=== PATIENT | male | born 1955 | race Caucasian/White ===

== ENCOUNTER → 2018-02-26 | Outpatient (REF) | payer OTHER | LOC: M SFHCLERA 15:55 | DX: R30.0 Dysuria (principal) ==

== ENCOUNTER 2018-03-22 14:53 | Inpatient (IN) | payer OTHER ==
[2018-03-22] MEDS: NITROGLYCERIN 0.4 MG SUBL TABLET SL (15:18)
[2018-03-22 15:21] LABS: BASO % 0.4 % (0.0-1.0); EOS # 0.1 10^3/uL (0.0-0.50); HEMOGLOBIN 13.7 g/dl (13.5-17.5); IMMATURE GRANULOCYTE % 0.4 % (0-3.0); LYMPH # 0.7 10^3/uL (1.5-4.5); MEAN CORPUSCULAR HEMOGLOBIN 31.3 pg (27.0-33.0); MEAN CORPUSCULAR HGB CONC 35.1 g/dl (32.0-36.5); MONO # 0.7 10^3/uL (0.0-0.8); NEUTROPHILS # 6.3 10^3/uL (1.8-7.7); NEUTROPHILS % 80.2 % (36.0-66.0); PLATELET COUNT, AUTOMATED 183 10^3/uL (150-450); RED BLOOD COUNT 4.38 10^6/uL (4.30-6.10); RED CELL DISTRIBUTION WIDTH 12.2 % (11.5-14.5); WHITE BLOOD COUNT 7.9 10^3/uL (4.0-10.0)
[2018-03-22 15:33] LABS: INR 0.94; PROTHROMBIN TIME 12.6 SECONDS (12.4-14.5)
[2018-03-22] MEDS: NS 500 ML IV (15:45)
[2018-03-22 15:48] LABS: ANION GAP 6 MEQ/L (8-16); BLOOD UREA NITROGEN 13 MG/DL (7-18); CALCIUM LEVEL 6.3 MG/DL (8.8-10.2); CARBON DIOXIDE LEVEL 21 MEQ/L (21-32); CHLORIDE LEVEL 117 MEQ/L (98-107); CREATININE FOR GFR 0.76 MG/DL (0.70-1.30); GLOMERULAR FILTRATION RATE > 60.0 (>49); GLUCOSE, FASTING 120 MG/DL (70-100); POTASSIUM SERUM 3.2 MEQ/L (3.5-5.1); SODIUM LEVEL 144 MEQ/L (136-145); TROPONIN I 0.06 NG/ML (< 0.10)
[2018-03-22 15:49] LABS: CK-MB VALUE MASS 1.1 NG/ML (<3.6); CPK CREATINE PHOSPHOKINASE 77 U/L (39-308); MB/CK RELATIVE INDEX 1.42 (< OR =4)
[2018-03-22] MEDS ORDERED: ISOVUE-370 76% 100ML VIAL (Q9967) As Ordered (16:09)
[2018-03-22] MEDS: POTASSIUM CHLORIDE 10 MEQ SR TABLET PO ×2 (16:10→21:03)
[2018-03-22] MEDS: NS 1,000 ML IV (17:09)
[2018-03-22] MEDS: cefTRIAXone SOD 1 GM in D5W MINI-BAG PLUS 50 ML IV (17:14)
[2018-03-22 17:38] LABS: LACTIC ACID SEPSIS PROTOCOL 0.8 MMOL/L (0.4-2.0)
[2018-03-22] MEDS ORDERED: NS 1,000 ML IV (17:58)
[2018-03-22] MEDS ORDERED: ONDANSETRON 4MG/2ML VIAL (J2405) IV (18:00)
[2018-03-22] MEDS: AZITHROMYCIN INJ 500 MG, VIAL MATE ADAPTER 1 EACH in D5W 250 ML IV (18:03)
[2018-03-22] MEDS: LevoFLOXacin IV 750 MG in APPROPRIATE DILUENT 1 EA IV (19:44)
[2018-03-22] MEDS: KETOROLAC 30 MG/ML VIAL (J1885) IV (21:02)
[2018-03-23] MEDS: NS 1,000 ML IV ×4 (00:05→19:59)
[2018-03-23] MEDS: traMADol 50 MG TAB PO ×2 (06:10→20:00)
[2018-03-23 07:01] LABS: BASO % 0.5 % (0.0-1.0); EOS # 0.1 10^3/uL (0.0-0.50); EOS % 2.5 % (0.0-3.0); HEMATOCRIT 36.6 % (42.0-52.0); HEMOGLOBIN 12.7 g/dl (13.5-17.5); IMMATURE GRANULOCYTE % 0.2 % (0-3.0); LYMPH % 17.3 % (24.0-44.0); MEAN CORPUSCULAR HEMOGLOBIN 31.2 pg (27.0-33.0); MEAN CORPUSCULAR HGB CONC 34.7 g/dl (32.0-36.5); MEAN CORPUSCULAR VOLUME 89.9 fl (80.0-96.0); MONO # 0.7 10^3/uL (0.0-0.8); MONO % 11.4 % (0.0-5.0); NEUTROPHILS # 3.9 10^3/uL (1.8-7.7); NEUTROPHILS % 68.1 % (36.0-66.0); PLATELET COUNT, AUTOMATED 182 10^3/uL (150-450); RED BLOOD COUNT 4.07 10^6/uL (4.30-6.10); RED CELL DISTRIBUTION WIDTH 12.2 % (11.5-14.5); WHITE BLOOD COUNT 5.7 10^3/uL (4.0-10.0)
[2018-03-23] MEDS: ENOXAPARIN 40 MG/0.4 ML SYRINGE (J1650) SC (07:49)
[2018-03-23] MEDS: LevoFLOXacin IV 750 MG in APPROPRIATE DILUENT 1 EA IV (17:19)
[2018-03-24] MEDS: NS 1,000 ML IV ×2 (02:06→08:11)
[2018-03-24] MEDS: ENOXAPARIN 40 MG/0.4 ML SYRINGE (J1650) SC (08:11)
== END 2018-03-24 12:53 | disposition home or self-care (01) | DRG 195 ==
LOC: M ED 14:53 → M ED INP 17:58 → M MSPAV 23:44
DX: J18.9 Pneumonia, unspecified organism (principal); Z79.899 Other long term (current) drug therapy; R07.81 Pleurodynia; M54.9 Dorsalgia, unspecified

== ENCOUNTER → 2018-07-08 | Outpatient (REF) | payer OTHER | LOC: M SFHCLERA 17:44 | DX: J02.9 Acute pharyngitis, unspecified (principal) ==

== ENCOUNTER → 2018-07-08 | Outpatient (CLI) | payer OTHER | LOC: M LRY 15:59 | DX: R05 Cough (principal) | CPT/HCPCS: 71046; 87880 ==

== ENCOUNTER 2019-03-13 18:18 | Emergency (ER) | payer OTHER ==
[~2019-03-13] VITALS: Ht 180.3 cm; Wt 87.3 kg
[~2019-03-13 18:18] MED LIST changes: -ASPI81CH33 PO
[2019-03-13 19:51] LABS: BASO % 0.9 % (0.0-1.0); EOS # 0.2 10^3/uL (0.0-0.50); EOS % 3.6 % (0.0-3.0); HEMATOCRIT 40.1 % (42.0-52.0); HEMOGLOBIN 13.9 g/dl (13.5-17.5); LYMPH # 0.9 10^3/uL (1.5-4.5); LYMPH % 19.6 % (24.0-44.0); MEAN CORPUSCULAR HGB CONC 34.7 g/dl (32.0-36.5); MEAN CORPUSCULAR VOLUME 92.4 fl (80.0-96.0); MONO # 0.4 10^3/uL (0.0-0.8); MONO % 8.9 % (0.0-5.0); NEUTROPHILS # 3.1 10^3/uL (1.8-7.7); NEUTROPHILS % 66.8 % (36.0-66.0); PLATELET COUNT, AUTOMATED 179 10^3/uL (150-450); RED BLOOD COUNT 4.34 10^6/uL (4.30-6.10); WHITE BLOOD COUNT 4.7 10^3/uL (4.0-10.0)
[2019-03-13 20:15] LABS: INR 0.97
[2019-03-13 20:16] LABS: PARTIAL THROMBOPLASTIN TIME 31.9 SECONDS (25.4-37.6)
[2019-03-13 20:25] LABS: ALBUMIN 3.6 GM/DL (3.2-5.2); ALT/SGPT 39 U/L (12-78); BILIRUBIN,DIRECT 0.2 MG/DL (0.0-0.2); BILIRUBIN,TOTAL 0.8 MG/DL (0.2-1.0); BLOOD UREA NITROGEN 23 MG/DL (7-18); CALCIUM LEVEL 9.1 MG/DL (8.8-10.2); CARBON DIOXIDE LEVEL 26 MEQ/L (21-32); CHLORIDE LEVEL 106 MEQ/L (98-107); CK-MB VALUE MASS 6.7 NG/ML (<3.6); CPK CREATINE PHOSPHOKINASE 565 U/L (39-308); CREATININE FOR GFR 1.14 MG/DL (0.70-1.30); GLOMERULAR FILTRATION RATE > 60.0 (>49); GLUCOSE, FASTING 137 MG/DL (70-100); MB/CK RELATIVE INDEX 1.19 (< OR =4); NT-PRO BNP 79 PG/ML (<125); SODIUM LEVEL 139 MEQ/L (136-145); TOTAL PROTEIN 6.5 GM/DL (6.4-8.2)
[2019-03-13] MEDS ORDERED: ISOVUE-370 76% 100ML VIAL (Q9967) As Ordered ONE (20:32)
--- NOTE | 2019-03-13 21:28 | REPVR ---
EXAM: CT Angiography Chest With Contrast EXAM DATE/TIME: 03/13/2019 8:47 PM CLINICAL HISTORY: 64 years old, male; Chest pain; Additional info: R/O pe TECHNIQUE: Imaging protocol: Axial computed tomographic angiography images of the chest with intravenous contrast using CT angiography protocol. Coronal and sagittal reformatted images were created and reviewed. 3D rendering: MIP reconstructed images were created and reviewed. Radiation optimization: All CT scans at this facility use at least one of these dose optimization techniques: automated exposure control; mA and/or kV adjustment per patient size (includes targeted exams where dose is matched to clinical indication); or iterative reconstruction. Contrast material: ISOVUE 370; Contrast volume: 75 ml; Contrast route: IV; COMPARISON: CT ANGIO CHEST 03/22/2018 4:18 PM FINDINGS: Pulmonary arteries: No focal pulmonary artery filling defect to suggest acute pulmonary embolus. Aorta: No thoracic aortic aneurysm or dissection. Lungs: Pulmonary vascular/interstitial pattern does not suggest active pulmonary edema. No suspicious lung mass or air space process. No central endobronchial lesion. Pleural space: No pleural effusion or pneumothorax. Heart: No evidence of pericardial effusion. Upper abdomen: Limited visualization of upper abdomen shows no concerning finding. Lymph nodes: No enlarged mediastinal lymph nodes. Bones/joints: Bony structures are unremarkable except for thoracic degenerative disc disease. Soft tissues: Unremarkable. IMPRESSION: 1. No evidence of acute pulmonary embolus. 2. No other acute or concerning focal intrathoracic abnormality. Electronically signed by: Saurabh Lerma On 03/13/2019 21:28:29 PM
[2019-03-13] MEDS ORDERED: KETOROLAC 30 MG/ML VIAL (J1885) IV ONE (22:30)
[2019-03-13 22:59] LABS: CK-MB VALUE MASS 6.1 NG/ML (<3.6); MB/CK RELATIVE INDEX 1.21 (< OR =4); TROPONIN I 0.19 NG/ML (< 0.10)
[2019-03-13] MEDS ORDERED: ASPI81CH33 PO (23:26)
[2019-03-13] MEDS ORDERED: ASPIRIN 81 MG ENTERIC TAB PO ONE (23:30)
[2019-03-13 23:58] VITALS: BP 130/80
--- NOTE | 2019-03-14 16:11 | ECGEPIP ---
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
--- NOTE | 2019-03-14 16:15 | ECGEPIP ---
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
== END 2019-03-13 23:56 | disposition home or self-care (01) ==
LOC: M ED 18:18
DX: R07.2 Precordial pain (principal); R74.8 Abnormal levels of other serum enzymes; R00.1 Bradycardia, unspecified; M79.605 Pain in left leg; E03.9 Hypothyroidism, unspecified; Z87.81 Personal history of (healed) traumatic fracture; Z79.899 Other long term (current) drug therapy; R07.89 Other chest pain; M25.552 Pain in left hip
CPT/HCPCS: 71046; 71275; 73552; 80048; 80076; 82550; 82553; 83880; 84443; 84484; 85025; 85610; 85730; 93005; 93041; 94760; 99285; G0463; J1885; Q9967

== ENCOUNTER → 2019-03-13 | Outpatient (CLI) | payer OTHER ==
[~2019-03-13] MED LIST: ADDE20CA PO; ASPI81CH33 PO; CYCL10TA PO; LEVA1TAB2 PO; LIDO5DIS41; LIDO5DIS41 TD; MELO7.5T7; MULTIVITAMIN; SERO1TAB PO; TIZA4CAP; TRAM50TA2 PO; VITA-121 PO
--- NOTE | 2019-03-13 17:08 | REP ---
Chest x-ray: Two views. History: Left upper chest tightness. Comparison study: July 08, 2018. Findings: The lungs are slightly hyperinflated but remain clear. Pleural angles are sharp. Heart size is normal. Pulmonary vasculature is not increased. The thoracic aorta slightly tortuous unchanged. No significant bony abnormality is appreciated. Impression: No active disease. Electronically Signed by Jose G Phelps MD 03/13/2019 04:59 P
--- NOTE | 2019-03-13 17:21 | REP ---
Left femur series: Five views. History: Pain in the lateral aspect of the left thigh 2 days after fall. Findings: Five views of the left femur and thigh demonstrate mild superior acetabular spurring. There is a soft tissue ossicle medial to the lesser trochanter which is of old and well corticated. No fracture or subluxation is seen. Impression: No fracture or subluxation seen. Mild hip joint osteoarthritis. Periarticular dystrophic ossification seen medial to the lesser trochanter. Electronically Signed by Jose G Phelps MD 03/13/2019 09:14 P
== END ==
LOC: M LRY 16:29
PROVIDERS: ATTEND Physician Assistant
DX: R07.89 Other chest pain (principal); M79.605 Pain in left leg; M25.552 Pain in left hip

== ENCOUNTER 2020-05-08 20:46 | Emergency (ER) | payer OTHER ==
[~2020-05-08 20:46] MED LIST changes: +ASPI81CH33 PO; +CYCL-707 PO; -CYCL10TA PO
--- NOTE | 2020-06-19 10:48 | ECGEPIP ---
SINUS BRADYCARDIA WITH OCCASIONAL VENTRICULAR PREMATURE COMPLEXES BORDERLINE ECG IVCD SEE SCANNED DOWNTIME REPORT MTDD
[2020-06-22 05:06] LABS: BASO # 0.1 10^3/uL (0.0-0.2); BASO % 1.2 % (0.0-1.0); EOS # 0.2 10^3/uL (0.0-0.5); EOS % 5.6 % (0.0-3.0); HEMATOCRIT 41.7 % (42.0-52.0); HEMOGLOBIN 14.2 g/dl (13.5-17.5); LYMPH # 1.3 10^3/uL (1.5-5.0); LYMPH % 29.3 % (24.0-44.0); MEAN CORPUSCULAR HEMOGLOBIN 31.4 pg (27.0-33.0); MEAN CORPUSCULAR HGB CONC 34.1 g/dl (32.0-36.5); MEAN CORPUSCULAR VOLUME 92.3 fl (80.0-96.0); MONO # 0.4 10^3/uL (0.0-0.8); MONO % 10.1 % (0.0-5.0); NEUTROPHILS # 2.3 10^3/uL (1.5-8.5); NEUTROPHILS % 53.6 % (36.0-66.0); PLATELET COUNT, AUTOMATED 188 10^3/uL (150-450); RED BLOOD COUNT 4.52 10^6/uL (4.30-6.10); WHITE BLOOD COUNT 4.3 10^3/uL (4.0-10.0)
[2020-07-28 17:32] LABS: BLOOD UREA NITROGEN 17 MG/DL (7-18); CALCIUM LEVEL 9.3 MG/DL (8.8-10.2); CARBON DIOXIDE LEVEL 30 MEQ/L (21-32); CHLORIDE LEVEL 106 MEQ/L (98-107); CK-MB VALUE MASS 4.7 NG/ML (<3.6); CPK CREATINE PHOSPHOKINASE 146 U/L (39-308); CREATININE FOR GFR 1.07 MG/DL (0.70-1.30); FREE T4 0.93 NG/DL (0.76-1.46); GLOMERULAR FILTRATION RATE > 60.0 (>49); GLUCOSE, FASTING 89 MG/DL (70-100); MAGNESIUM LEVEL 2.1 MG/DL (1.8-2.4); MB/CK RELATIVE INDEX 3.22 (< OR =4); POTASSIUM SERUM 3.9 MEQ/L (3.5-5.1); SODIUM LEVEL 138 MEQ/L (136-145); TROPONIN I 0.18 NG/ML (< 0.10)
== END 2020-05-09 02:40 | disposition home or self-care (01) ==
LOC: M ED 20:46
DX: R53.81 Other malaise (principal); R11.0 Nausea; R00.1 Bradycardia, unspecified; R51 Headache; J02.9 Acute pharyngitis, unspecified; E03.9 Hypothyroidism, unspecified

== ENCOUNTER 2021-01-16 14:00 | Emergency (ER) | payer MEDICARE, OTHER ==
[~2021-01-16] VITALS: Ht 180.3 cm; Wt 94.7 kg
--- NOTE | 2021-01-16 15:31 | REP ---
INDICATION: CHEST PAIN. COMPARISON: 03/13/2019. TECHNIQUE: SINGLE PORTABLE AP VIEW OF THE CHEST WAS PERFORMED. FINDINGS: THERE IS NO ACUTE INFILTRATE OR PULMONARY EDEMA. LUNGS ARE CLEAR. HEART IS NOT SIGNIFICANTLY ENLARGED. MEDIASTINAL SILHOUETTE IS UNREMARKABLE. THE VISUALIZED OSSEOUS STRUCTURES ARE INTACT. IMPRESSION: NO ACUTE PULMONARY DISEASE. <Electronically signed by Carlos Albarran > 01/16/21 1520
[2021-01-16 15:39] LABS: BASO # 0.1 10^3/uL (0.0-0.2); BASO % 1.6 % (0.0-1.0); EOS # 0.2 10^3/uL (0.0-0.5); EOS % 5.4 % (0.0-3.0); HEMATOCRIT 41.8 % (42.0-52.0); HEMOGLOBIN 14.3 g/dl (13.5-17.5); LYMPH # 0.8 10^3/uL (1.5-5.0); LYMPH % 26.5 % (24.0-44.0); MEAN CORPUSCULAR HEMOGLOBIN 32.2 pg (27.0-33.0); MEAN CORPUSCULAR HGB CONC 34.2 g/dl (32.0-36.5); MEAN CORPUSCULAR VOLUME 94.1 fl (80.0-96.0); MONO # 0.4 10^3/uL (0.0-0.8); MONO % 13.1 % (2.0-8.0); NEUTROPHILS # 1.7 10^3/uL (1.5-8.5); NEUTROPHILS % 53.4 % (36.0-66.0); PLATELET COUNT, AUTOMATED 175 10^3/uL (150-450); RED BLOOD COUNT 4.44 10^6/uL (4.30-6.10); WHITE BLOOD COUNT 3.1 10^3/uL (4.0-10.0)
[2021-01-16 15:51] LABS: INR 0.95; PROTHROMBIN TIME 12.9 SECONDS (12.5-14.3)
[2021-01-16 16:12] LABS: ALBUMIN 3.5 GM/DL (3.2-5.2); ALT/SGPT 29 U/L (12-78); BILIRUBIN,DIRECT 0.2 MG/DL (0.0-0.2); BILIRUBIN,TOTAL 0.7 MG/DL (0.2-1.0); BLOOD UREA NITROGEN 21 MG/DL (7-18); CARBON DIOXIDE LEVEL 30 MEQ/L (21-32); CHLORIDE LEVEL 106 MEQ/L (98-107); CK-MB VALUE MASS 4.6 NG/ML (<3.6); CPK CREATINE PHOSPHOKINASE 152 U/L (39-308); GLOMERULAR FILTRATION RATE > 60.0 (>49); GLUCOSE, FASTING 99 MG/DL (70-100); LIPASE 103 U/L (73-393); MB/CK RELATIVE INDEX 3.03 (< OR =4); POTASSIUM SERUM 4.1 MEQ/L (3.5-5.1); SODIUM LEVEL 139 MEQ/L (136-145); TOTAL PROTEIN 6.7 GM/DL (6.4-8.2); TROPONIN I 0.17 NG/ML (< 0.10)
[2021-01-16 16:16] LABS: FREE T4 0.77 NG/DL (0.76-1.46); THYROID STIMULATING HORMONE 7.44 uIU/ML (0.358-3.740)
[2021-01-16 17:51] LABS: CK-MB VALUE MASS 4.5 NG/ML (<3.6); MB/CK RELATIVE INDEX 3.08 (< OR =4); TROPONIN I 0.17 NG/ML (< 0.10)
[2021-01-16] MEDS ORDERED: LEVOTHYROXINE 25MCG TABLET (0.025MG) PO ONE (18:15)
[2021-01-16] MEDS ORDERED: SYNT25TA PO ×2 (18:17→18:46)
[2021-01-16 18:30] VITALS: BP 126/66
--- NOTE | 2021-01-16 19:59 | ECGEPIP ---
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
--- NOTE | 2021-01-16 20:01 | ECGEPIP ---
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
== END 2021-01-16 18:43 | disposition home or self-care (01) ==
LOC: M ED 14:00
DX: R00.1 Bradycardia, unspecified (principal); I44.0 Atrioventricular block, first degree; E03.9 Hypothyroidism, unspecified

== ENCOUNTER 2021-02-27 10:04 | Emergency (ER) | payer MEDICARE, OTHER ==
[~2021-02-27] VITALS: Ht 180.3 cm; Wt 92.6 kg
[~2021-02-27 10:04] MED LIST changes: +SYNT25TA PO
--- NOTE | 2021-02-27 10:30 | REP ---
INDICATION: CHEST PAIN COMPARISON: 01/16/2021 TECHNIQUE: Portable AP view of the chest FINDINGS: The mediastinum and cardiac silhouette are stable and within normal limits for portable technique. The lung bellamy are clear without acute consolidation, effusion, or pneumothorax. Skeletal structures are intact. IMPRESSION: No acute cardiopulmonary process appreciated. <Electronically signed by Anthony Tipton > 02/27/21 1028
[2021-02-27] MEDS ORDERED: XARE15TA (11:05)
[2021-02-27 11:08] LABS: BASO # 0.1 10^3/uL (0.0-0.2); BASO % 1.6 % (0.0-1.0); EOS # 0.2 10^3/uL (0.0-0.5); EOS % 6.2 % (0.0-3.0); HEMATOCRIT 43.4 % (42.0-52.0); HEMOGLOBIN 14.8 g/dl (13.5-17.5); LYMPH # 1.3 10^3/uL (1.5-5.0); LYMPH % 32.5 % (24.0-44.0); MEAN CORPUSCULAR HEMOGLOBIN 31.7 pg (27.0-33.0); MEAN CORPUSCULAR HGB CONC 34.1 g/dl (32.0-36.5); MEAN CORPUSCULAR VOLUME 92.9 fl (80.0-96.0); MONO # 0.4 10^3/uL (0.0-0.8); MONO % 11.4 % (2.0-8.0); NEUTROPHILS # 1.8 10^3/uL (1.5-8.5); NEUTROPHILS % 47.8 % (36.0-66.0); PLATELET COUNT, AUTOMATED 171 10^3/uL (150-450); RED BLOOD COUNT 4.67 10^6/uL (4.30-6.10); WHITE BLOOD COUNT 3.9 10^3/uL (4.0-10.0)
--- NOTE | 2021-02-27 11:27 | REP ---
INDICATION: right testicular pain COMPARISON: None. TECHNIQUE: Albarran scale and color Doppler evaluation using linear and curved array transducer with color Doppler evaluation. FINDINGS: The testicles and epididymi are relatively normal in contour, size, and vascularity. Echogenicity to the right testicle is normal while the left testicle demonstrates a very subtle striated heterogeneous appearance which is nonspecific. There is no evidence for intratesticular mass lesion, infectious/inflammatory process, or torsion. No obvious hydroceles or varicoceles are identified. Right testicle measures 3.4 x 2.7 x 3.3 cm. Left testicle measures 4.7 x 2.3 x 3.0 cm. IMPRESSION: Essentially normal scrotal ultrasound. <Electronically signed by Anthony Tipton > 02/27/21 [id number]
[2021-02-27 11:55] LABS: ALBUMIN 3.7 GM/DL (3.2-5.2); ALT/SGPT 26 U/L (12-78); BILIRUBIN,DIRECT 0.2 MG/DL (0.0-0.2); BILIRUBIN,TOTAL 0.7 MG/DL (0.2-1.0); BLOOD UREA NITROGEN 17 MG/DL (7-18); CALCIUM LEVEL 9.4 MG/DL (8.8-10.2); CARBON DIOXIDE LEVEL 28 MEQ/L (21-32); CHLORIDE LEVEL 107 MEQ/L (98-107); CREATININE FOR GFR 1.19 MG/DL (0.70-1.30); GLOMERULAR FILTRATION RATE > 60.0 (>49); GLUCOSE, FASTING 93 MG/DL (70-100); LIPASE 80 U/L (73-393); POTASSIUM SERUM 4.2 MEQ/L (3.5-5.1); SODIUM LEVEL 140 MEQ/L (136-145); TOTAL PROTEIN 6.8 GM/DL (6.4-8.2)
[2021-02-27] MEDS ORDERED: ISOVUE-370 76% 100ML VIAL As Ordered ONE (11:58)
--- NOTE | 2021-02-27 12:28 | REP ---
INDICATION: CP h/o PE COMPARISON: 03/13/2019 TECHNIQUE: Axial contrast enhanced images from the thoracic inlet to the upper abdomen using pulmonary embolus technique with multiplanar re-formations. 75 ml Isovue 370 intravenous contrast material administered without complication. This CT examination was performed using the following dose reduction techniques: Automated exposure control, adjustment of mA and/or kv according to the patient's size, and use of iterative reconstruction technique. FINDINGS: Satisfactory enhancement of the pulmonary vasculature is achieved and no filling defects are identified to suggest pulmonary embolus. Further evaluation of the mediastinum demonstrates normal thoracic aorta. Cardiomegaly suggested. No pericardial effusion. The bilateral lung bellamy are well aerated and clear without consolidation pleural effusion or pneumothorax. Tracheobronchial tree is patent. No nodule or mass lesion is identified. No adenopathy noted. Surrounding musculoskeletal structures intact IMPRESSION: No evidence for pulmonary embolus. No acute mediastinal or pleural parenchymal process. Cardiomegaly. <Electronically signed by Anthony Tipton > 02/27/21 2526
--- NOTE | 2021-02-27 12:30 | REP ---
INDICATION: abd pain. COMPARISON: 08/22/2007 TECHNIQUE: Axial contrast-enhanced images from the lung bases to the pubic symphysis using 100 cc Isovue 370 intravenous contrast material. Coronal and sagittal reformations obtained. This CT examination was performed using the following dose reduction techniques: Automated exposure control, adjustment of mA and/or kv according to the patient's size, and the use of iterative reconstruction technique. FINDINGS: Liver, spleen, pancreas, gallbladder, bilateral adrenal glands and right kidney are normal. Left kidney again demonstrates 1.5 cm simple cyst unchanged from 2006. The enteric system including stomach, small, and large bowel appears normal. No evidence for obstruction or acute inflammatory process. Normal terminal ileum and appendix are identified in the right lower quadrant. Sigmoid diverticula noted without acute diverticulitis. Pelvis demonstrates partially collapsed bladder and mild prostatomegaly. No ascites. No free air. No intraperitoneal or retroperitoneal adenopathy. Abdominal aorta and vasculature appear normal. Musculoskeletal structures are intact and without acute osseous abnormality. IMPRESSION: No acute abdominopelvic pathology appreciated. <Electronically signed by Anthony Tipton > 02/27/21 [id number]
[2021-02-27] MEDS ORDERED: XARE15TA PO (13:23)
[2021-02-27 13:45] VITALS: BP 130/70
--- NOTE | 2021-02-28 08:48 | ECGEPIP ---
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
== END 2021-02-27 14:45 | disposition home or self-care (01) ==
LOC: M ED 10:04
DX: R10.9 Unspecified abdominal pain (principal); R07.9 Chest pain, unspecified; N50.819 Testicular pain, unspecified; R94.31 Abnormal electrocardiogram [ECG] [EKG]; E07.9 Disorder of thyroid, unspecified; Z79.01 Long term (current) use of anticoagulants; Z79.890 Hormone replacement therapy; Z86.711 Personal history of pulmonary embolism
CPT/HCPCS: 36415; 71045; 71275; 74177; 76870; 80048; 80076; 83690; 84484; 85025; 93005; 93041; 93976; 94760; 99285; Q9967

== ENCOUNTER → 2021-03-31 | Outpatient (REF) | payer MEDICARE, OTHER ==
[~2021-03-31] MED LIST changes: +XARE15TA; +XARE15TA PO
[2021-03-31 13:58] LABS: APPEARANCE, URINE CLEAR (CLEAR); BACTERIA, URINE AUTO NEGATIVE (NEGATIVE); BILIRUBIN, URINE AUTO NEGATIVE (NEGATIVE); BLOOD, URINE BLOOD NEGATIVE (NEGATIVE); COLOR, URINE YELLOW (YELLOW); GLUCOSE, URINE (UA) AUTO NEGATIVE (NEGATIVE); KETONE, URINE AUTO NEGATIVE (NEGATIVE); LEUKOCYTE ESTERASE, URINE AUTO NEGATIVE (NEGATIVE); NITRITE, URINE AUTO NEGATIVE (NEGATIVE); PROTEIN, URINE AUTO NEGATIVE (NEGATIVE); RBC, URINE AUTO 0 /HPF (0-3); SPECIFIC GRAVITY URINE AUTO 1.018 (1.002-1.035); SQUAMOUS EPITHELIAL CELL UR AU 0 /HPF (0-6); UROBILINOGEN, URINE AUTO 0.2 mg/dL (0.0-2.0); WBC, URINE AUTO 0 /HPF (0-3)
== END ==
LOC: M SMT 13:17
PROVIDERS: ATTEND Nurse Practitioner Women's Health
DX: R35.0 Frequency of micturition (principal)
CPT/HCPCS: 51798; 81001; 87086; G0463

== ENCOUNTER 2021-05-12 16:02 | Inpatient (IN) | payer MEDICARE, OTHER ==
[~2021-05-12] VITALS: Ht 180.3 cm; Wt 92.0 kg
[2021-05-12] MEDS ORDERED: BOOSTRIX/ADACEL VACCINE (DIPHTH/PERTUSS/ACELL/TETANUS) 0.5ML SYR IM ONE (21:45)
[2021-05-12 22:39] LABS: BASO % 0.4 % (0.0-1.0); EOS # 0.1 10^3/uL (0.0-0.5); EOS % 0.7 % (0.0-3.0); HEMATOCRIT 46.2 % (42.0-52.0); HEMOGLOBIN 15.7 g/dl (13.5-17.5); LYMPH # 0.9 10^3/uL (1.5-5.0); LYMPH % 10.8 % (24.0-44.0); MEAN CORPUSCULAR HEMOGLOBIN 32.2 pg (27.0-33.0); MEAN CORPUSCULAR VOLUME 94.7 fl (80.0-96.0); MONO # 0.7 10^3/uL (0.0-0.8); MONO % 8.7 % (2.0-8.0); NEUTROPHILS # 6.3 10^3/uL (1.5-8.5); PLATELET COUNT, AUTOMATED 181 10^3/uL (150-450); RED BLOOD COUNT 4.88 10^6/uL (4.30-6.10)
--- NOTE | 2021-05-12 22:52 | REPVR ---
PROCEDURE INFORMATION: Exam: US Duplex Left Upper Extremity Veins, Limited Exam date and time: 05/12/2021 10:13 PM Age: 66 years old Clinical indication: Swelling (edema) of limb; Upper extremity, left; Additional info: R/O dvt to lue, h/o pe noncomplicant with xarelto TECHNIQUE: Imaging protocol: Real-time Duplex ultrasound of the Left Upper Extremity with 2-D butcher scale, color Doppler flow and spectral waveform analysis with image documentation. Limited exam focused on the left upper extremity veins. COMPARISON: CT ANGIO CHEST 02/27/2021 12:01 PM FINDINGS: Left deep veins: Unremarkable. Axillary and brachial veins are patent throughout without thrombus. Normal Doppler waveforms. Normal compressibility and/or augmentation response. Visualized internal jugular and subclavian veins are patent. Left superficial veins: Unremarkable. Visualized cephalic and basilic veins are patent without thrombus. Soft tissues: Unremarkable. IMPRESSION: Negative left upper extremity venous duplex exam without evidence of deep venous thrombosis. Electronically signed by: Charlie Prieto On 05/12/2021 22:51:57 PM
[2021-05-12 23:01] LABS: ERYTHROCYTE SEDIMENTATION RATE 12 mm/hr (0-20)
[2021-05-12 23:15] LABS: RSV AMPLIFICATION NEGATIVE (NEGATIVE)
[2021-05-12] MEDS ORDERED: VANCOMYCIN HCL 2,000 MG in D5W 500 ML IV ONE (23:25)
[2021-05-12] MEDS ORDERED: BACITAB PO (23:45)
[2021-05-12] MEDS ORDERED: VITMTA PO (23:45)
[2021-05-12] MEDS ORDERED: XARE15TA PO (23:45)
[2021-05-12] MEDS ORDERED: CLEO300C2 PO (23:45)
[2021-05-12] MEDS ORDERED: HOME MED LIST COMPLETE! XX SCH (23:50)
[2021-05-13 00:09] LABS: ALBUMIN 3.7 GM/DL (3.2-5.2); BILIRUBIN,DIRECT 0.2 MG/DL (0.0-0.2); BILIRUBIN,TOTAL 1.1 MG/DL (0.2-1.0); C REACTIVE PROTEIN QUANTITATIV 8.03 MG/DL (0.00-0.30); TOTAL PROTEIN 7.3 GM/DL (6.4-8.2)
[2021-05-13] MEDS ORDERED: ACETAMINOPHEN TAB 650MG DOSE (2X325MG) PO PRN (00:40)
[2021-05-13] MEDS ORDERED: MAALOX 30 ML SUSP *UDC PO PRN (00:40)
[2021-05-13] MEDS ORDERED: MOM 30ML SUSPENSION UDC PO PRN (00:40)
[2021-05-13] MEDS ORDERED: VANCOMYCIN HCL 1,000 MG, VIAL MATE ADAPTER 1 EACH in NS 250 ML IV ONE ×4 (01:00)
--- NOTE | 2021-05-13 01:02 | REPVR ---
PROCEDURE INFORMATION: Exam: XR Left Elbow Exam date and time: 05/12/2021 10:33 PM Age: 66 years old Clinical indication: Pain; Elbow; Left; Additional info: L elbow injury, redness/swelling to lue TECHNIQUE: Imaging protocol: XR Left elbow. Views: 3 or more views. COMPARISON: US DUPLEX EXT UPPER VEINS UNILATE LEFT 2021-05-12 21:58 FINDINGS: Bones/joints: Enlargement of the olecranon bursa, bursitis. Mild degenerative joint disease. Soft tissues: Soft tissue swelling. IMPRESSION: Soft tissue swelling. Enlargement of the olecranon bursa, bursitis. Electronically signed by: Alonzo Suh On 05/13/2021 01:01:54 AM
[2021-05-13] MEDS ORDERED: GI COCKTAIL 50ML BTL(HYOSCYAMINE/MAALOX/LIDOCAINE VISCOUS)(1:3:1) PO ONE (01:35)
[2021-05-13] MEDS ORDERED: LORazepam 1 MG TAB PO PRN (01:40)
--- NOTE | 2021-05-13 01:57 | HPEPDOC ---
General Date of Admission May 13, 2021 at 00:39 Date of Service: May 13, 2021 Chief Complaint Upper Extremity pain Source: Patient Associated Symptoms: Fever, Chills History of Present Illness Nguyễn Long is a 66-year-old white male with significant history of PE, TIA, MEREDITH, EtOH use and chronic back pain who arrives with left upper extremity swelli ng. Patient reports 2 weeks ago he slipped and landed on his left elbow and noted some swelling around the elbow- denied bruising or discoloration. He reports that he did notice what he described as almost blistered-like area 2 inches above the elbow that he popped with a needle and then over the course of the past week he reports that his elbow has had some redness/ swelling spreading to LUE. Patient describes it as getting progressively worse over the past 3 days; described as discomfort with swelling. Associated symptoms of fever/chills. He reports yesterday he went to the [facility] and got a prescription for clindamycin which he picked up today. He has since taken 3 tablets today before his encouraged him to come to the ER. Pt denies mina, sinus congestion, sore throat, productive cough, sob, palpitations, n/v/d, abdominal pain, weakness, sensory changes or syncope. Patient notably swollen left arm with circular scabbed wound to left elbow and surrounding erythema of note, LUE US neg DVT. Patient will be admitted for further evaluation and management of presenting concerns Home Medications Scheduled Clindamycin Hcl (Cleocin HCl) 300 Mg Capsule, 300 MG PO QID, (Reported) STARTED ON 05/12/21 Bina/Jerome/B.bif/S.therm (Bacid Caplet) 1 Each Tablet, 1 TAB PO DAILY, (Reported) Multivitamins (Thera M Plus Tablet) 1 Each Tablet, 1 TAB PO DAILY, (Reported) Rivaroxaban (Xarelto) 15 Mg Tablet, 15 MG PO DAILY, (Reported) Allergies Coded Allergies: No Known Allergies (Unverified , 06/22/13) Past Medical History Medical History TBI, OSAsporadic CPAP need reported, chronic back pain, EtOH use, PE on Xarelto Surgical History Tonsillectomy and uvula procedure, hernia repair Family History Significant Family History: No pertinent family hx Social History * Smoker: Denies Alcohol: heavy (3 beers daily) Recent Travel/Sick Contacts: Denies: Recent travel, Recent sick contacts Psychosocial History: No pertinent psych hx Patient , patient describes occupation working with aircraft. A-FIB/CHADSVASC A-FIB History Current/History of A-Fib/PAF?: No Current PO Anticoag Therapy: Yes Review of Systems Constitutional: Reports: Chills, Fever; Denies: Night Sweats Eyes: Denies: Pain, Vision change ENT: Denies: Head Aches, Ear Pain, Dysphagia Skin: Reports: Lesions (Left elbow scabbing and surrounding erythema of left upper extremity); Denies: Rash, Breakdown Pulmonary: Reports: Other Symptoms (Chest tightness); Denies: Dyspnea, Cough Cardiovascular: Denies: Chest Pain, Palpitations, Orthopnea, Paroxysmal Noc. Dyspnea, Lt Headedness Gastrointestinal: Denies: Nausea, Vomiting, Abdominal Pain, Diarrhea Genitourinary: Denies: Dysuria, Frequency, Incontinence, Retention Hematologic: Denies: Bruising, Bleeding Excessively Musculoskeletal: Denies: Neck Pain, Back Pain, Joint Pain, Muscle Pain, Spasms Neurological: Denies: Weakness, Numbness, Change in speech, Confusion Psych: Reports: Mood Normal; Denies: Depression, Memory Issues Physical Examination General Exam: Positive: Alert, No Acute Distress Eye Exam: Positive: PERRLA, Conjunctiva & lids normal, EOMI; Negative: Sclera icteric ENT Exam: Positive: Atraumatic, Mucous membr. moist/pink, Pharynx Normal Neck Exam: Positive: Supple; Negative: JVD, thyromegaly Chest Exam: Positive: Clear to auscultation, Normal air movement Heart Exam: Positive: Rate Normal, Regular Rhythm, Normal S1, Normal S2; Negative: Murmurs (Occasional extrasystole), Rubs Abdomen Exam: Positive: Normal bowel sounds, Soft; Negative: Tenderness, Hepatospenomegaly Extremity Exam: Positive: Edema, Normal pulses, Swelling (Left upper extremity); Negative: Clubbing, Cyanosis Skin Exam: Positive: Nl turgor and temperature, Other skin issue (Left elbow scabbing surrounded by erythema); Negative: Breakdown, Lesion Neuro Exam: Positive: Normal Gait, Normal Speech, Cranial Nerves 3-12 NL, Reflexes 2+ Psych Exam: Positive: Mental status NL, Mood NL, Oriented x 3 Vital Signs Vital Signs Date Time Temp Pulse Resp B/P (MAP) Pulse Ox O2 Delivery O2 Flow Rate FiO2 05/12/21 21:29 97.9 62 18 153/74 (100) 99 Room Air Laboratory Data Labs 24H Laboratory Tests 2 05/12/21 21:43: Immature Granulocyte % (Auto) 0.4, Neutrophils (%) (Auto) 79.0H, Lymphocytes (%) (Auto) 10.8L, Monocytes (%) (Auto) 8.7H, Eosinophils (%) (Auto) 0.7, Basophils (%) (Auto) 0.4, Neutrophils # (Auto) 6.3, Lymphocytes # (Auto) 0.9L, Monocytes # (Auto) 0.7, Eosinophils # (Auto) 0.1, Basophils # (Auto) 0.0, Nucleated Red Blood Cells % (auto) 0.0, Erythrocyte Sedimentation Rate 12, Coronavirus (COVID- 19)(PCR) NEGATIVE, Influenza Type A (RT-PCR) NEGATIVE, Influenza Type B (RT-PCR) NEGATIVE, Respiratory Syncytial Virus (PCR) NEGATIVE 05/12/21 22:42: POC Glucose (Misc Panel) 118H, POC Sodium (Misc Panel) 136, POC Potassium (Misc Panel) 4.9, POC Chloride (Misc Panel) 101, POC Total CO2 (Misc Panel) 30.0H, POC Blood Urea Nitrogen (Misc Panel 23, POC Ionized Calcium (Misc Panel) 4.6, POC Creatinine (Misc Panel) 1.2, POC Hematocrit (Misc Panel) 47.0 05/12/21 23:22: Total Bilirubin 1.1H, Direct Bilirubin 0.2, Aspartate Amino Transf (AST/SGOT) 50H, Alanine Aminotransferase (ALT/SGPT) 28, Alkaline Phosphatase 56, C-Reactive Protein, Quantitative 8.03H, Total Protein 7.3, Albumin 3.7, Albumin/Globulin Ratio 1.0 CBC/BMP Laboratory Tests 05/12/21 21:43 Microbiology Microbiology 05/12/21 Blood Culture, Received Pending 05/12/21 Blood Culture, Received Pending RAD Interpretation STUDY: Left upper extremity ultr Rad Actions: Report Reviewed Assessment/Plan 1. LUE cellulitis: LUE ultrasound patency intact. -Monitor patient, monitor for signs symptoms worsening infection- Procal/lactic. Blood culture sent. Will start with vancomycin: Pharmacy to dose consult placed. -LUE x-ray pending-patient is able to bend his arm. No sustained numbness or tingling of the left upper extremity, Intact left pulses/sensation with brisk cap refill. Plan for neurovascular checks to the left upper extremity. There is consideration of septic joint given the ANTONIO-consider CT in a.m. 2. Episode of chest pain: Patient describes sensation of mid chest "coldness" followed by some chest tightness he does endorse that he has been having some reflux type symptoms recently and the onset of this episode was after taking a clindamycin capsule today in ER. This likely relates to a possible esophageal spasm episode. Patient is also known to have a history of EtOH use which can predispose him to reflux. However, given patient with cardiac risk markers, history of arrhythmia, will opt for chest pain monitoring per protocol. Trial GI cocktail. Troponin and EKG pending; will place on telemetry as this will also be beneficial given patient monitoring for withdrawal. Consider further cardiac work-up pending course. 3. History of PE: On Xarelto, continue 4. EtOH use: Encourage decrease use/cessation. CIWA scale with Ativan p.o. may escalate scheduling depending patient response. Daily folic acid, thiamine and multi vitamin. DVT: Xarelto CODE STATUS: Full Dispo: 2 midnight stay anticipated Plan / VTE VTE Prophylaxis Ordered?: Yes ALEENA HALL NP May 13, 2021 01:39 JULIOCESAR KAHN MD May 17, 2021 02:58
[2021-05-13 02:43] VITALS: BP 152/85
[2021-05-13 02:45] VITALS: BP 152/85
--- NOTE | 2021-05-13 03:10 | REPVR ---
PROCEDURE INFORMATION: Exam: XR Chest Exam date and time: 05/13/2021 1:45 AM Age: 66 years old Clinical indication: Other: Tightness; Additional info: Chest tightness TECHNIQUE: Imaging protocol: XR of the chest. Views: 1 view. COMPARISON: CR PORTABLE CHEST X-RAY 02/27/2021 10:23 AM FINDINGS: Lungs: Clear. No consolidation. Pleural spaces: No pleural effusion. No pneumothorax. Heart/Mediastinum: Unremarkable. No cardiomegaly. Bones/joints: Unremarkable. IMPRESSION: No acute findings. Electronically signed by: Ellis Kumar On 05/13/2021 03:09:38 AM
[2021-05-13] MEDS: VANCOMYCIN HCL 1,000 MG, VIAL MATE ADAPTER 1 EACH in NS 250 ML IV SCH ×3 (04:17→20:14)
[2021-05-13 05:50] LABS: BASO # 0.1 10^3/uL (0.0-0.2); BASO % 0.7 % (0.0-1.0); EOS # 0.1 10^3/uL (0.0-0.5); EOS % 0.9 % (0.0-3.0); HEMATOCRIT 40.2 % (42.0-52.0); HEMOGLOBIN 14.1 g/dl (13.5-17.5); LYMPH # 0.9 10^3/uL (1.5-5.0); LYMPH % 11.5 % (24.0-44.0); MEAN CORPUSCULAR HEMOGLOBIN 32.2 pg (27.0-33.0); MEAN CORPUSCULAR HGB CONC 35.1 g/dl (32.0-36.5); MEAN CORPUSCULAR VOLUME 91.8 fl (80.0-96.0); MONO # 0.7 10^3/uL (0.0-0.8); MONO % 9.3 % (2.0-8.0); NEUTROPHILS # 5.8 10^3/uL (1.5-8.5); NEUTROPHILS % 76.7 % (36.0-66.0); PLATELET COUNT, AUTOMATED 134 10^3/uL (150-450); RED BLOOD COUNT 4.38 10^6/uL (4.30-6.10); WHITE BLOOD COUNT 7.6 10^3/uL (4.0-10.0)
[2021-05-13 06:00] VITALS: BP 138/83
[2021-05-13 06:08] LABS: ERYTHROCYTE SEDIMENTATION RATE 12 mm/hr (0-20)
[2021-05-13 06:10] LABS: BLOOD UREA NITROGEN 14 MG/DL (7-18); C REACTIVE PROTEIN QUANTITATIV 8.77 MG/DL (0.00-0.30); CALCIUM LEVEL 8.7 MG/DL (8.8-10.2); CARBON DIOXIDE LEVEL 28 MEQ/L (21-32); CHLORIDE LEVEL 106 MEQ/L (98-107); CPK CREATINE PHOSPHOKINASE 113 U/L (39-308); CREATININE FOR GFR 1.11 MG/DL (0.70-1.30); GLOMERULAR FILTRATION RATE > 60.0 (>49); GLUCOSE, FASTING 141 MG/DL (70-100); POTASSIUM SERUM 3.9 MEQ/L (3.5-5.1); SODIUM LEVEL 138 MEQ/L (136-145)
[2021-05-13] MEDS: RIVAROXABAN 15 MG TAB (XARELTO) PO SCH (08:36)
[2021-05-13] MEDS: THIAMINE 100 MG TAB PO SCH (08:36)
[2021-05-13] MEDS: MULTIVITAMINS/MINERALS THERAP 1 TAB PO SCH (08:36)
[2021-05-13] MEDS: LACTOBACILLUS ACIDOPHILUS CAP (BACID) PO SCH (08:36)
[2021-05-13] MEDS: FOLIC ACID 1 MG TAB PO SCH (08:36)
--- NOTE | 2021-05-13 08:47 | REP ---
INDICATION: Cellulitis, ulcer, concern for septic joint. COMPARISON: Left elbow plain film study dated 05/12/2021. TECHNIQUE: CT of the left elbow without IV contrast. FINDINGS: There is a focal fluid collection in the subcutaneous soft tissues posterior to the olecranon, in the olecranon bursa. The fluid is slightly echogenic compatible with proteinaceous fluid compatible with hematoma or abscess. There is a 2nd subcutaneous fluid collection in the antecubital fossa. The fluid is also a slightly echogenic with similar diagnostic considerations. There is diffuse edema throughout the subcutaneous soft tissues of the distal upper arm and of the forearm, accompanied by mild skin thickening, compatible with cellulitis. There is no fracture. There is no dislocation. There are no lytic, blastic or destructive skeletal changes. IMPRESSION: There are 2 subcutaneous focal fluid collections with slightly echogenic fluid, 1 posterior to the olecranon in the olecranon bursa and the other in the antecubital fossa, compatible with either abscesses or hematomas. There is circumferential subcutaneous soft tissue edema and slight skin thickening in the distal upper arm and in the forearm compatible with cellulitis. No fracture or dislocation. No lytic, blastic or destructive skeletal changes. <Electronically signed by Carlos Hair > 05/13/21 0823
[2021-05-13 14:00] VITALS: BP 122/64
[2021-05-13] MEDS ORDERED: SODIUM BICARBONATE 8.4% INJ 50MEQ 50 ML VIAL As Ordered ONE (14:18)
[2021-05-13] MEDS ORDERED: LIDOCAINE 1% MDV 20ML VIAL As Ordered ONE (14:18)
--- NOTE | 2021-05-13 16:59 | IPNPDOC ---
Subjective Date Seen The patient was seen on 05/13/21. Subjective Chief Complaint/HPI Mr. Long is a 66 year old male with history of PE and TIA who is here with left upper extremity pain/swelling and found to have cellulitis. This morning, he denies any chest pain or dyspnea. Still has pain, swelling, and warmth from left elbow. I was able to find a surgical pen to outline the cellulitis area. Ordered for CT elbow which was negative for effusion in the joint space, but there were two fluid collections else where. IR drained and cultured the fluid collections Objective Physical Examination General Exam: Positive: Alert, No Acute Distress Eye Exam: Negative: Sclera icteric Neck Exam: Positive: Supple Chest Exam: Positive: Clear to auscultation; Negative: Rales, Rhonchi, Wheezing Heart Exam: Positive: Rate Normal, Regular Rhythm Abdomen Exam: Positive: Normal bowel sounds, Soft; Negative: Tenderness Extremity Exam: Positive: Swelling (Left upper extremity) Skin Exam: Positive: Other skin issue (Left elbow raised ulcer with slough) Neuro Exam: Positive: Normal Speech Psych Exam: Positive: Mental status NL, Mood NL Assessment /Plan Assessment Mr. Long is a 66 year old male with history of PE and TIA who is here with left upper extremity pain/swelling and found to have left upper extremity cellulitis. It is most likely due to the mechanical fall he had 2 weeks ago and when he lanced a blister like area of his elbow. He had tried clindamycin outpatient but failed. Cellulitis is extensive and circumferential. CT elbow was negative for joint space effusion, so septic arthritis is unlikely. There were two pockets of fluid collection which may be hematoma vs abscess. IR drained and cultured the fluid collection. Plan/VTE VTE Prophylaxis Ordered?: Yes Plan 1. Left upper extremity cellulitis -Secondary to trauma -Failed outpatient clindamycin -Continue with Vancomycin day 1 -CT elbow negative for joint effusion, but there were two fluid collections. IR drained. Pending culture results 2. History of PE -Continues on Xarelto 3. ETOH use -[facility] protocol -Folic acid, thiamine, and multivitamin 4. DVT ppx -On Xarelto Disposition: Pending improvement in cellulitis and culture results. VS, I&O, 24H, Fishbone Vital Signs/I&O Vital Signs Date Time Temp Pulse Resp B/P (MAP) Pulse Ox O2 Delivery O2 Flow Rate FiO2 05/13/21 15:06 70 16 96 Room Air 05/13/21 14:40 98.7 05/13/21 14:00 122/64 (83) I&O- Last 24 Hours up to 6 AM 05/13/21 06:00 Intake Total 540 ml Balance 540 ml Laboratory Data 24H LABS Laboratory Tests 2 05/12/21 21:43: Immature Granulocyte % (Auto) 0.4, Neutrophils (%) (Auto) 79.0H, Lymphocytes (%) (Auto) 10.8L, Monocytes (%) (Auto) 8.7H, Eosinophils (%) (Auto) 0.7, Basophils (%) (Auto) 0.4, Neutrophils # (Auto) 6.3, Lymphocytes # (Auto) 0.9L, Monocytes # (Auto) 0.7, Eosinophils # (Auto) 0.1, Basophils # (Auto) 0.0, Nucleated Red Blood Cells % (auto) 0.0, Erythrocyte Sedimentation Rate 12, Coronavirus (COVID- 19)(PCR) NEGATIVE, Influenza Type A (RT-PCR) NEGATIVE, Influenza Type B (RT-PCR) NEGATIVE, Respiratory Syncytial Virus (PCR) NEGATIVE 05/12/21 22:42: POC Glucose (Misc Panel) 118H, POC Sodium (Misc Panel) 136, POC Potassium (Misc Panel) 4.9, POC Chloride (Misc Panel) 101, POC Total CO2 (Misc Panel) 30.0H, POC Blood Urea Nitrogen (Misc Panel 23, POC Ionized Calcium (Misc Panel) 4.6, POC Creatinine (Misc Panel) 1.2, POC Hematocrit (Misc Panel) 47.0 05/12/21 23:22: Total Bilirubin 1.1H, Direct Bilirubin 0.2, Aspartate Amino Transf (AST/SGOT) 50H, Alanine Aminotransferase (ALT/SGPT) 28, Alkaline Phosphatase 56, C-Reactive Protein, Quantitative 8.03H, Total Protein 7.3, Albumin 3.7, Albumin/Globulin Ratio 1.0 05/13/21 05:28: Immature Granulocyte % (Auto) 0.9, Neutrophils (%) (Auto) 76.7H, Lymphocytes (%) (Auto) 11.5L, Monocytes (%) (Auto) 9.3H, Eosinophils (%) (Auto) 0.9, Basophils (%) (Auto) 0.7, Neutrophils # (Auto) 5.8, Lymphocytes # (Auto) 0.9L, Monocytes # (Auto) 0.7, Eosinophils # (Auto) 0.1, Basophils # (Auto) 0.1, Nucleated Red Blood Cells % (auto) 0.0, Erythrocyte Sedimentation Rate 12, C-Reactive Protein, Quantitative 8.77H, Anion Gap 4L, Glomerular Filtration Rate > 60.0, Lactic Acid Level 0.5, Calcium Level 8.7L, Total Creatine Kinase 113 CBC/BMP Laboratory Tests 05/12/21 21:43 05/13/21 05:28 Microbiology Microbiology 05/13/21 Anaerobic Culture, Received Pending 05/13/21 Gram Stain, Received Pending 05/13/21 Abscess Culture, Received Pending 05/12/21 Blood Culture, Received Pending 05/12/21 Blood Culture, Received Pending BRADY MONTENEGRO DO May 13, 2021 16:59
--- NOTE | 2021-05-13 17:09 | REP ---
INDICATION: Possible abscess, left upper extremity COMPARISON: None. TECHNIQUE: The procedure was performed by TOM Garcia, under the direct supervision of Dr. Phelps The risks and benefits of the procedure were explained to the patient and an informed consent was obtained both verbally and written. Directly prior to the start of the procedure a formal time-out was completed in the procedure room. Fluid in the posterior left elbow localized using ultrasound guidance. The skin was prepped and draped in a sterile fashion. Three ML of buffered lidocaine was used as a local anesthetic. Using ultrasound guidance a 5 Japanese multi side hole skater catheter was inserted using trocar technique. FINDINGS: Approximately 6 mL of joint fluid was withdrawn and sent to the laboratory for further analysis. The patient tolerated the procedure well and there were no immediate complications. After the appropriate amount of monitored convalescence, the patient was discharged from the department. IMPRESSION: Ultrasound-guided left elbow aspiration. <Electronically signed by Claudette Sanchez > 05/13/21 [id number] <Electronically signed by Clinton Phelps > 05/13/21 [id number]
[2021-05-13 22:00] VITALS: BP 122/65
[2021-05-14] MEDS: VANCOMYCIN HCL 1,000 MG, VIAL MATE ADAPTER 1 EACH in NS 250 ML IV SCH ×3 (04:25→20:06)
[2021-05-14 06:00] VITALS: BP 168/74
[2021-05-14 06:02] LABS: BASO # 0.1 10^3/uL (0.0-0.2); BASO % 0.7 % (0.0-1.0); EOS # 0.1 10^3/uL (0.0-0.5); EOS % 1.9 % (0.0-3.0); HEMATOCRIT 41.3 % (42.0-52.0); HEMOGLOBIN 14.1 g/dl (13.5-17.5); LYMPH % 15.4 % (24.0-44.0); MEAN CORPUSCULAR HGB CONC 34.1 g/dl (32.0-36.5); MEAN CORPUSCULAR VOLUME 93.7 fl (80.0-96.0); MONO # 0.6 10^3/uL (0.0-0.8); MONO % 9.5 % (2.0-8.0); NEUTROPHILS # 4.9 10^3/uL (1.5-8.5); NEUTROPHILS % 72.1 % (36.0-66.0); PLATELET COUNT, AUTOMATED 176 10^3/uL (150-450); RED BLOOD COUNT 4.41 10^6/uL (4.30-6.10); WHITE BLOOD COUNT 6.7 10^3/uL (4.0-10.0)
[2021-05-14 06:24] LABS: BLOOD UREA NITROGEN 14 MG/DL (7-18); C REACTIVE PROTEIN QUANTITATIV 9.49 MG/DL (0.00-0.30); CALCIUM LEVEL 8.9 MG/DL (8.8-10.2); CARBON DIOXIDE LEVEL 27 MEQ/L (21-32); CHLORIDE LEVEL 107 MEQ/L (98-107); CREATININE FOR GFR 1.03 MG/DL (0.70-1.30); GLOMERULAR FILTRATION RATE > 60.0 (>49); GLUCOSE, FASTING 98 MG/DL (70-100); POTASSIUM SERUM 3.8 MEQ/L (3.5-5.1); SODIUM LEVEL 139 MEQ/L (136-145)
[2021-05-14 08:40] LABS: MAGNESIUM LEVEL 2.6 MG/DL (1.8-2.4); TROPONIN I 0.08 NG/ML (< 0.10)
--- NOTE | 2021-05-14 09:15 | REP ---
INDICATION: dyspnea. COMPARISON: 05/13/2021 TECHNIQUE: Two views FINDINGS: The lungs are clear. The heart is not enlarged there is no failure. The mediastinum and pleural surfaces are unremarkable. No acute change. The previous study. IMPRESSION: No active process. <Electronically signed by Flex Sarmiento > 05/14/21 0911
[2021-05-14] MEDS: RIVAROXABAN 15 MG TAB (XARELTO) PO SCH (09:27)
[2021-05-14] MEDS: THIAMINE 100 MG TAB PO SCH (09:27)
[2021-05-14] MEDS: LACTOBACILLUS ACIDOPHILUS CAP (BACID) PO SCH (09:27)
[2021-05-14] MEDS: FOLIC ACID 1 MG TAB PO SCH (09:27)
[2021-05-14] MEDS: MULTIVITAMINS/MINERALS THERAP 1 TAB PO SCH (09:28)
[2021-05-14] MEDS: PIPERACILLIN/TAZOBACTAM SOD 3.375 GM in D5W MINI-BAG PLUS 50 ML IV SCH ×3 (09:28→21:18)
--- NOTE | 2021-05-14 09:57 | IPNPDOC ---
Subjective Date Seen The patient was seen on 05/14/21. Subjective Chief Complaint/HPI Mr. Long is a 66 year old male with history of PE and TIA who is here with left upper extremity pain/swelling and found to have cellulitis. Yesterday, they were about to drain 6mL of fluid which was sent for gram stain and culture. This morning, he feels that his left arm is a little better and he is able to move it more, but the cellulitis has extended beyond the line that I lauren yesterday. Increased antibiotic spectrum by adding Zosyn. Objective Physical Examination General Exam: Positive: Alert, No Acute Distress Eye Exam: Negative: Sclera icteric Neck Exam: Positive: Supple Chest Exam: Positive: Clear to auscultation; Negative: Rales, Rhonchi, Wheezing Heart Exam: Positive: Rate Normal, Regular Rhythm Abdomen Exam: Positive: Normal bowel sounds, Soft; Negative: Tenderness Extremity Exam: Positive: Swelling (Left upper extremity) Skin Exam: Positive: Other skin issue (Left elbow raised ulcer with slough) Neuro Exam: Positive: Normal Speech Psych Exam: Positive: Mental status NL, Mood NL Assessment /Plan Assessment Mr. Long is a 66 year old male with history of PE and TIA who is here with left upper extremity pain/swelling and found to have left upper extremity cellulitis. It is most likely due to the mechanical fall he had 2 weeks ago and when he lanced a blister like area of his elbow. He had tried clindamycin outpatient but failed. Cellulitis is extensive and circumferential. CT elbow was negative for joint space effusion, so septic arthritis is unlikely. There were two pockets of fluid collection which may be hematoma vs abscess. IR drained and cultured the fluid collection. Plan/VTE VTE Prophylaxis Ordered?: Yes Plan 1. Left upper extremity cellulitis -Secondary to trauma -Failed outpatient clindamycin -CT elbow negative for joint effusion, but there were two fluid collections. IR drained. Pending culture results -Despite Vancomycin, cellulitis extended beyond the line I lauren yesterday -Added Zosyn to the vancomycin 2. History of PE -Continues on Xarelto 3. ETOH use -[facility] protocol -Folic acid, thiamine, and multivitamin 4. DVT ppx -On Xarelto Disposition: Pending improvement in cellulitis and culture results. VS, I&O, 24H, Fishbone Vital Signs/I&O Vital Signs Date Time Temp Pulse Resp B/P (MAP) Pulse Ox O2 Delivery O2 Flow Rate FiO2 05/14/21 06:00 98.3 62 18 168/74 (105) 95 Room Air I&O- Last 24 Hours up to 6 AM 05/14/21 06:00 Intake Total 1400 ml Output Total 725 ml Balance 675 ml Laboratory Data 24H LABS Laboratory Tests 2 05/13/21 19:01: Vancomycin Level Trough 11.3 05/14/21 05:42: Immature Granulocyte % (Auto) 0.4, Neutrophils (%) (Auto) 72.1H, Lymphocytes (%) (Auto) 15.4L, Monocytes (%) (Auto) 9.5H, Eosinophils (%) (Auto) 1.9, Basophils (%) (Auto) 0.7, Neutrophils # (Auto) 4.9, Lymphocytes # (Auto) 1.0L, Monocytes # (Auto) 0.6, Eosinophils # (Auto) 0.1, Basophils # (Auto) 0.1, Nucleated Red Blood Cells % (auto) 0.0, Anion Gap 5L, Glomerular Filtration Rate > 60.0, Calcium Level 8.9, C-Reactive Protein, Quantitative 9.49H CBC/BMP Laboratory Tests 05/14/21 05:42 Microbiology Microbiology 05/13/21 Anaerobic Culture, Received Pending 05/13/21 Gram Stain - Final, Resulted 05/13/21 Abscess Culture, Resulted Pending 05/12/21 Blood Culture - Preliminary, Resulted No growth after 24 hours . All specim... 05/12/21 Blood Culture - Preliminary, Resulted No growth after 24 hours . All specim... BRADY MONTENEGRO DO May 14, 2021 09:57
[2021-05-14 14:00] VITALS: BP 110/76
[2021-05-14] MEDS ORDERED: VANCOMYCIN HCL 1,000 MG, VIAL MATE ADAPTER 1 EACH in NS 250 ML IV ONE (14:00)
[2021-05-14 18:00] VITALS: BP 142/85
[2021-05-15] MEDS: VANCOMYCIN HCL 1,000 MG, VIAL MATE ADAPTER 1 EACH in NS 250 ML IV SCH ×3 (04:18→20:29)
[2021-05-15] MEDS: PIPERACILLIN/TAZOBACTAM SOD 3.375 GM in D5W MINI-BAG PLUS 50 ML IV SCH ×4 (05:28→22:11)
[2021-05-15 06:00] VITALS: BP 114/72
[2021-05-15 06:06] LABS: BASO # 0.1 10^3/uL (0.0-0.2); BASO % 1.2 % (0.0-1.0); EOS # 0.2 10^3/uL (0.0-0.5); EOS % 3.3 % (0.0-3.0); HEMATOCRIT 40.6 % (42.0-52.0); LYMPH % 20.4 % (24.0-44.0); MEAN CORPUSCULAR HEMOGLOBIN 31.9 pg (27.0-33.0); MEAN CORPUSCULAR HGB CONC 34.5 g/dl (32.0-36.5); MEAN CORPUSCULAR VOLUME 92.5 fl (80.0-96.0); MONO # 0.6 10^3/uL (0.0-0.8); MONO % 11.2 % (2.0-8.0); NEUTROPHILS # 3.1 10^3/uL (1.5-8.5); NEUTROPHILS % 63.7 % (36.0-66.0); PLATELET COUNT, AUTOMATED 199 10^3/uL (150-450); RED BLOOD COUNT 4.39 10^6/uL (4.30-6.10); WHITE BLOOD COUNT 4.9 10^3/uL (4.0-10.0)
[2021-05-15 06:28] LABS: BLOOD UREA NITROGEN 14 MG/DL (7-18); CALCIUM LEVEL 8.6 MG/DL (8.8-10.2); CARBON DIOXIDE LEVEL 27 MEQ/L (21-32); CHLORIDE LEVEL 107 MEQ/L (98-107); CREATININE FOR GFR 1.14 MG/DL (0.70-1.30); GLOMERULAR FILTRATION RATE > 60.0 (>49); GLUCOSE, FASTING 130 MG/DL (70-100); POTASSIUM SERUM 3.8 MEQ/L (3.5-5.1); SODIUM LEVEL 139 MEQ/L (136-145)
[2021-05-15] MEDS: FOLIC ACID 1 MG TAB PO SCH (09:28)
[2021-05-15] MEDS: LACTOBACILLUS ACIDOPHILUS CAP (BACID) PO SCH (09:28)
[2021-05-15] MEDS: MULTIVITAMINS/MINERALS THERAP 1 TAB PO SCH (09:28)
[2021-05-15] MEDS: RIVAROXABAN 15 MG TAB (XARELTO) PO SCH (09:28)
[2021-05-15] MEDS: THIAMINE 100 MG TAB PO SCH (09:28)
--- NOTE | 2021-05-15 09:59 | IPNPDOC ---
Subjective Date Seen The patient was seen on 05/15/21. Subjective Chief Complaint/HPI Mr. Long is a 66 year old male with history of PE and TIA who is here with left upper extremity pain/swelling and found to have cellulitis. Today, cellulitis looks better with the addition of Zosyn but still very extensive. He feels that he has more ROM with his arm and swelling improved. Denies chest pain or dyspnea. Objective Physical Examination General Exam: Positive: Alert, No Acute Distress Eye Exam: Negative: Sclera icteric Neck Exam: Positive: Supple Chest Exam: Positive: Clear to auscultation; Negative: Rales, Rhonchi, Wheezing Heart Exam: Positive: Rate Normal, Regular Rhythm Abdomen Exam: Positive: Normal bowel sounds, Soft; Negative: Tenderness Extremity Exam: Positive: Swelling (Swelling is improving in the left upper extremity) Skin Exam: Positive: Rash (Extensive cellulitis of left arm), Other skin issue (Left elbow raised ulcer with slough) Neuro Exam: Positive: Normal Speech Psych Exam: Positive: Mental status NL, Mood NL Assessment /Plan Assessment Mr. Long is a 66 year old male with history of PE and TIA who is here with left upper extremity pain/swelling and found to have left upper extremity cellulitis. It is most likely due to the mechanical fall he had 2 weeks ago and when he lanced a blister like area of his elbow. He had tried clindamycin outpatient but failed. Cellulitis is extensive and circumferential. CT elbow was negative for joint space effusion, so septic arthritis is unlikely. There were two pockets of fluid collection which may be hematoma vs abscess. IR drained and cultured the fluid collection. Fluid collection grew MSSA, but interestingly, the cellulitis had spread further with just the vancomycin. The addition of Zosyn seemed to help. Will continue the Vancomycin and Zosyn combination at this time. Will recheck CRP and ESR tomorrow. Plan/VTE VTE Prophylaxis Ordered?: Yes Plan 1. Left upper extremity cellulitis -Secondary to trauma -Failed outpatient clindamycin -CT elbow negative for joint effusion, but there were two fluid collections. IR drained. Pending culture results -Despite Vancomycin, cellulitis extended beyond the line I lauren. Better controlled with the addition of Zosyn -Vancomycin and Zosyn day 2 2. History of PE -Continues on Xarelto 3. ETOH use -[facility] protocol -Folic acid, thiamine, and multivitamin 4. DVT ppx -On Xarelto Disposition: Pending improvement in cellulitis VS, I&O, 24H, Fishbone Vital Signs/I&O Vital Signs Date Time Temp Pulse Resp B/P (MAP) Pulse Ox O2 Delivery O2 Flow Rate FiO2 05/15/21 06:00 98.7 57 18 114/72 (86) 97 Room Air I&O- Last 24 Hours up to 6 AM 05/15/21 05:59 Intake Total 1080 ml Output Total 500 ml Balance 580 ml Laboratory Data 24H LABS Laboratory Tests 2 05/14/21 11:19: Vancomycin Level Trough 9.7L 05/15/21 05:48: Immature Granulocyte % (Auto) 0.2, Neutrophils (%) (Auto) 63.7, Lymphocytes (%) (Auto) 20.4L, Monocytes (%) (Auto) 11.2H, Eosinophils (%) (Auto) 3.3H, Basophils (%) (Auto) 1.2H, Neutrophils # (Auto) 3.1, Lymphocytes # (Auto) 1.0L, Monocytes # (Auto) 0.6, Eosinophils # (Auto) 0.2, Basophils # (Auto) 0.1, Nucleated Red Blood Cells % (auto) 0.0, Anion Gap 5L, Glomerular Filtration Rate > 60.0, Calcium Level 8.6L CBC/BMP Laboratory Tests 05/15/21 05:48 Microbiology Microbiology 05/13/21 Anaerobic Culture - Final, Complete 05/13/21 Gram Stain - Final, Complete 05/13/21 Abscess Culture - Final, Complete Staphylococcus Aureus 05/12/21 Blood Culture - Preliminary, Resulted No Growth after 48 hours. All Specime... 05/12/21 Blood Culture - Preliminary, Resulted No Growth after 48 hours. All Specime... BRADY MONTENEGRO DO May 15, 2021 09:59
[2021-05-15 14:00] VITALS: BP 113/62
[2021-05-15 22:00] VITALS: BP 131/73
[2021-05-16] MEDS: PIPERACILLIN/TAZOBACTAM SOD 3.375 GM in D5W MINI-BAG PLUS 50 ML IV SCH ×4 (03:26→20:18)
[2021-05-16] MEDS: VANCOMYCIN HCL 1,000 MG, VIAL MATE ADAPTER 1 EACH in NS 250 ML IV SCH (04:06)
[2021-05-16 05:51] LABS: BASO # 0.1 10^3/uL (0.0-0.2); BASO % 1.4 % (0.0-1.0); EOS # 0.2 10^3/uL (0.0-0.5); HEMATOCRIT 39.8 % (42.0-52.0); HEMOGLOBIN 13.8 g/dl (13.5-17.5); MEAN CORPUSCULAR HGB CONC 34.7 g/dl (32.0-36.5); MEAN CORPUSCULAR VOLUME 92.3 fl (80.0-96.0); MONO # 0.5 10^3/uL (0.0-0.8); MONO % 11.9 % (2.0-8.0); NEUTROPHILS # 2.5 10^3/uL (1.5-8.5); NEUTROPHILS % 58.5 % (36.0-66.0); PLATELET COUNT, AUTOMATED 213 10^3/uL (150-450); RED BLOOD COUNT 4.31 10^6/uL (4.30-6.10); WHITE BLOOD COUNT 4.2 10^3/uL (4.0-10.0)
[2021-05-16 06:00] VITALS: BP 123/76
[2021-05-16 06:08] LABS: BLOOD UREA NITROGEN 18 MG/DL (7-18); C REACTIVE PROTEIN QUANTITATIV 3.35 MG/DL (0.00-0.30); CALCIUM LEVEL 9.2 MG/DL (8.8-10.2); CARBON DIOXIDE LEVEL 27 MEQ/L (21-32); CHLORIDE LEVEL 109 MEQ/L (98-107); CREATININE FOR GFR 1.12 MG/DL (0.70-1.30); GLOMERULAR FILTRATION RATE > 60.0 (>49); GLUCOSE, FASTING 99 MG/DL (70-100); SODIUM LEVEL 140 MEQ/L (136-145)
[2021-05-16 06:10] LABS: ERYTHROCYTE SEDIMENTATION RATE 41 mm/hr (0-20)
[2021-05-16] MEDS: FOLIC ACID 1 MG TAB PO SCH (09:15)
[2021-05-16] MEDS: RIVAROXABAN 15 MG TAB (XARELTO) PO SCH (09:15)
[2021-05-16] MEDS: LACTOBACILLUS ACIDOPHILUS CAP (BACID) PO SCH (09:15)
[2021-05-16] MEDS: THIAMINE 100 MG TAB PO SCH (09:15)
[2021-05-16] MEDS: MULTIVITAMINS/MINERALS THERAP 1 TAB PO SCH (09:15)
--- NOTE | 2021-05-16 13:27 | IPNPDOC ---
Subjective Date Seen The patient was seen on 05/16/21. Subjective Chief Complaint/HPI Mr. Long is a 66 year old male with history of PE and TIA who is here with left upper extremity pain/swelling and found to have cellulitis. This morning, he is feeling better and feels that the swelling has improved. The erythema is receding. The IV Zosyn seemed to be helping him more than the IV vancomycin. Cultures grew MSSA. Will continue vancomycin and continue IV Zosyn for today. Objective Physical Examination General Exam: Positive: Alert, No Acute Distress Eye Exam: Negative: Sclera icteric Neck Exam: Positive: Supple Chest Exam: Positive: Clear to auscultation; Negative: Rales, Rhonchi, Wheezing Heart Exam: Positive: Rate Normal, Regular Rhythm Abdomen Exam: Positive: Normal bowel sounds, Soft; Negative: Tenderness Extremity Exam: Positive: Swelling (Swelling is improving in the left upper extremity) Skin Exam: Positive: Rash (Extensive cellulitis of left arm), Other skin issue (Left elbow raised ulcer with slough) Neuro Exam: Positive: Normal Speech Psych Exam: Positive: Mental status NL, Mood NL Assessment /Plan Assessment Mr. Long is a 66 year old male with history of PE and TIA who is here with left upper extremity pain/swelling and found to have left upper extremity cellulitis. It is most likely due to the mechanical fall he had 2 weeks ago and when he lanced a blister like area of his elbow. He had tried clindamycin out patient but failed. Cellulitis is extensive and circumferential. CT elbow was negative for joint space effusion, so septic arthritis is unlikely. There were two pockets of fluid collection which may be hematoma vs abscess. IR drained and cultured the fluid collection. Fluid collection grew MSSA, but interestingly, the cellulitis had spread further with just the vancomycin. The addition of Zosyn seemed to help. Vancomycin will be discontinued and Zosyn continued Plan/VTE VTE Prophylaxis Ordered?: Yes Plan 1. Left upper extremity cellulitis -Secondary to trauma -Failed outpatient clindamycin -CT elbow negative for joint effusion, but there were two fluid collections. IR drained. Pending culture results -Despite Vancomycin, cellulitis extended beyond the line I lauren. Better controlled with the addition of Zosyn -Zosyn day 3 2. History of PE -Continues on Xarelto 3. ETOH use -[facility] protocol -Folic acid, thiamine, and multivitamin 4. DVT ppx -On Xarelto Disposition: Pending improvement in cellulitis. Consider switch to oral anti biotics tomorrow VS, I&O, 24H, Fishbone Vital Signs/I&O Vital Signs Date Time Temp Pulse Resp B/P (MAP) Pulse Ox O2 Delivery O2 Flow Rate FiO2 05/16/21 06:00 98.0 55 17 123/76 (92) 97 Room Air I&O- Last 24 Hours up to 6 AM 05/16/21 06:00 Intake Total 2410 ml Balance 2410 ml Laboratory Data 24H LABS Laboratory Tests 2 05/15/21 18:42: Vancomycin Level Trough 17.6 05/16/21 05:34: Immature Granulocyte % (Auto) 0.2, Neutrophils (%) (Auto) 58.5, Lymphocytes (%) (Auto) 23.0L, Monocytes (%) (Auto) 11.9H, Eosinophils (%) (Auto) 5.0H, Basophils (%) (Auto) 1.4H, Neutrophils # (Auto) 2.5, Lymphocytes # (Auto) 1.0L, Monocytes # (Auto) 0.5, Eosinophils # (Auto) 0.2, Basophils # (Auto) 0.1, Nucleated Red Blood Cells % (auto) 0.0, Erythrocyte Sedimentation Rate 41H, Anion Gap 4L, Glomerular Filtration Rate > 60.0, Calcium Level 9.2, C-Reactive Protein, Quantitative 3.35H CBC/BMP Laboratory Tests 05/16/21 05:34 Microbiology Microbiology 05/13/21 Anaerobic Culture - Final, Complete 05/13/21 Gram Stain - Final, Complete 05/13/21 Abscess Culture - Final, Complete Staphylococcus Aureus 05/12/21 Blood Culture - Preliminary, Resulted No Growth after 72 hours. All specime... 05/12/21 Blood Culture - Preliminary, Resulted No Growth after 72 hours. All specime... BRADY MONTENEGRO DO May 16, 2021 13:27
[2021-05-16 14:00] VITALS: BP 131/74
[2021-05-16 22:00] VITALS: BP 120/68
[2021-05-17] MEDS: PIPERACILLIN/TAZOBACTAM SOD 3.375 GM in D5W MINI-BAG PLUS 50 ML IV SCH (03:38)
[2021-05-17 05:55] LABS: BASO # 0.1 10^3/uL (0.0-0.2); BASO % 1.2 % (0.0-1.0); EOS # 0.2 10^3/uL (0.0-0.5); EOS % 5.4 % (0.0-3.0); HEMATOCRIT 40.2 % (42.0-52.0); HEMOGLOBIN 13.9 g/dl (13.5-17.5); MEAN CORPUSCULAR HEMOGLOBIN 32.1 pg (27.0-33.0); MEAN CORPUSCULAR HGB CONC 34.6 g/dl (32.0-36.5); MEAN CORPUSCULAR VOLUME 92.8 fl (80.0-96.0); MONO # 0.4 10^3/uL (0.0-0.8); MONO % 10.5 % (2.0-8.0); NEUTROPHILS # 2.4 10^3/uL (1.5-8.5); NEUTROPHILS % 58.7 % (36.0-66.0); PLATELET COUNT, AUTOMATED 214 10^3/uL (150-450); RED BLOOD COUNT 4.33 10^6/uL (4.30-6.10); WHITE BLOOD COUNT 4.1 10^3/uL (4.0-10.0)
[2021-05-17 06:00] VITALS: BP 156/85
[2021-05-17 06:21] LABS: BLOOD UREA NITROGEN 17 MG/DL (7-18); CARBON DIOXIDE LEVEL 26 MEQ/L (21-32); CHLORIDE LEVEL 108 MEQ/L (98-107); CREATININE FOR GFR 1.24 MG/DL (0.70-1.30); GLOMERULAR FILTRATION RATE > 60.0 (>49); GLUCOSE, FASTING 143 MG/DL (70-100); POTASSIUM SERUM 3.9 MEQ/L (3.5-5.1); SODIUM LEVEL 139 MEQ/L (136-145)
[2021-05-17] MEDS: THIAMINE 100 MG TAB PO SCH (08:18)
[2021-05-17] MEDS: LACTOBACILLUS ACIDOPHILUS CAP (BACID) PO SCH (08:18)
[2021-05-17] MEDS: MULTIVITAMINS/MINERALS THERAP 1 TAB PO SCH (08:18)
[2021-05-17] MEDS: RIVAROXABAN 15 MG TAB (XARELTO) PO SCH (08:18)
[2021-05-17] MEDS: FOLIC ACID 1 MG TAB PO SCH (08:18)
[2021-05-17] MEDS: AUGMENTIN 875 MG TAB PO SCH ×2 (08:24→20:37)
[2021-05-17 14:00] VITALS: BP 139/71
--- NOTE | 2021-05-17 14:09 | IPNPDOC ---
Subjective Date Seen The patient was seen on 05/17/21. Subjective Chief Complaint/HPI Mr. Long is a 66 year old male with history of PE and TIA who is here with left upper extremity pain/swelling and found to have cellulitis. Patient was seen this morning. Denies chest pain or dyspnea. He remains afebrile. Cellulitis looks much improved. Since Zosyn helped more than the vancomycin, patient may have gram negative or anaerobe. Unlikely pseudomonas. Will try Augmentin for similar coverage. If does well, possible discharge tomorrow. Otherwise, renal function starting to increase, most likely due to the Zosyn Objective Physical Examination General Exam: Positive: Alert, Cooperative Eye Exam: Positive: EOMI; Negative: Sclera icteric ENT Exam: Positive: Atraumatic Neck Exam: Positive: Supple Chest Exam: Positive: Clear to auscultation Heart Exam: Positive: Rate Normal, Regular Rhythm Abdomen Exam: Positive: Normal bowel sounds, Soft Skin Exam: Positive: Other skin issue (Left elbow ulcer with erythema) Neuro Exam: Positive: Normal Speech, Cranial Nerves 3-12 NL Psych Exam: Positive: Mental status NL, Mood NL, Oriented x 3 Assessment /Plan Assessment Mr. Long is a 66 year old male with history of PE and TIA who is here with left upper extremity pain/swelling and found to have left upper extremity cellulitis. It is most likely due to the mechanical fall he had 2 weeks ago and when he lanced a blister like area of his elbow. He had tried clindamycin outpatient but failed. Cellulitis is extensive and circumferential. CT elbow was negative for joint space effusion, so septic arthritis is unlikely. There were two pockets of fluid collection which may be hematoma vs abscess. IR drained and cultured the fluid collection. Fluid collection grew MSSA, but interestingly, the cellulitis had spread further with just the vancomycin. The addition of Zosyn seemed to help. Vancomycin will be discontinued and Zosyn continued. Creatinine starting to increase, but cellulitis has improved compared to prior. Will switch patient to Augmentin. Plan/VTE VTE Prophylaxis Ordered?: Yes Plan 1. Left upper extremity cellulitis -Secondary to trauma -Failed outpatient clindamycin -CT elbow negative for joint effusion, but there were two fluid collections. IR drained. Pending culture results -Despite Vancomycin, cellulitis extended beyond the line I lauren. Better controlled with the addition of Zosyn -Zosyn switched to Augmentin day 4 2. Left upper extremity ulcer -Most likely the source of the cellulitis -Would recommend outpatient follow up with [facility], Dr. Kwan 3. History of PE -Continues on Xarelto 4. ETOH use -[facility] protocol -Folic acid, thiamine, and multivitamin 5. DVT ppx -On Xarelto Disposition: If patient does well with PO Augmentin, can discharge tomorrow morning. VS, I&O, 24H, Fishbone Vital Signs/I&O Vital Signs Date Time Temp Pulse Resp B/P (MAP) Pulse Ox O2 Delivery O2 Flow Rate FiO2 05/17/21 06:00 98.1 53 18 156/85 (108) 97 Room Air I&O- Last 24 Hours up to 6 AM 05/17/21 05:59 Intake Total 2050 ml Output Total 600 ml Balance 1450 ml Laboratory Data 24H LABS Laboratory Tests 2 05/17/21 05:41: Immature Granulocyte % (Auto) 0.2, Neutrophils (%) (Auto) 58.7, Lymphocytes (%) (Auto) 24.0, Monocytes (%) (Auto) 10.5H, Eosinophils (%) (Auto) 5.4H, Basophils (%) (Auto) 1.2H, Neutrophils # (Auto) 2.4, Lymphocytes # (Auto) 1.0L, Monocytes # (Auto) 0.4, Eosinophils # (Auto) 0.2, Basophils # (Auto) 0.1, Nucleated Red Blood Cells % (auto) 0.0, Anion Gap 5L, Glomerular Filtration Rate > 60.0, Calcium Level 9.0 CBC/BMP Laboratory Tests 05/17/21 05:41 Microbiology Microbiology 05/13/21 Anaerobic Culture - Final, Complete 05/13/21 Gram Stain - Final, Complete 05/13/21 Abscess Culture - Final, Complete Staphylococcus Aureus 05/12/21 Blood Culture - Preliminary, Resulted No Growth after 72 hours. All specime... 05/12/21 Blood Culture - Preliminary, Resulted No Growth after 72 hours. All specime... BRADY MONTENEGRO DO May 17, 2021 14:09
[2021-05-17 22:00] VITALS: BP 138/78
[2021-05-18 06:00] VITALS: BP 164/84
[2021-05-18 06:27] LABS: BASO # 0.1 10^3/uL (0.0-0.2); BASO % 1.6 % (0.0-1.0); EOS # 0.2 10^3/uL (0.0-0.5); EOS % 5.2 % (0.0-3.0); HEMOGLOBIN 14.1 g/dl (13.5-17.5); LYMPH # 1.1 10^3/uL (1.5-5.0); LYMPH % 25.8 % (24.0-44.0); MEAN CORPUSCULAR HEMOGLOBIN 31.8 pg (27.0-33.0); MEAN CORPUSCULAR HGB CONC 34.4 g/dl (32.0-36.5); MEAN CORPUSCULAR VOLUME 92.3 fl (80.0-96.0); MONO # 0.4 10^3/uL (0.0-0.8); MONO % 10.1 % (2.0-8.0); NEUTROPHILS # 2.4 10^3/uL (1.5-8.5); NEUTROPHILS % 57.1 % (36.0-66.0); PLATELET COUNT, AUTOMATED 234 10^3/uL (150-450); RED BLOOD COUNT 4.44 10^6/uL (4.30-6.10); WHITE BLOOD COUNT 4.3 10^3/uL (4.0-10.0)
[2021-05-18 06:51] LABS: BLOOD UREA NITROGEN 16 MG/DL (7-18); CALCIUM LEVEL 9.1 MG/DL (8.8-10.2); CARBON DIOXIDE LEVEL 27 MEQ/L (21-32); CHLORIDE LEVEL 108 MEQ/L (98-107); CREATININE FOR GFR 1.01 MG/DL (0.70-1.30); GLOMERULAR FILTRATION RATE > 60.0 (>49); GLUCOSE, FASTING 91 MG/DL (70-100); POTASSIUM SERUM 4.2 MEQ/L (3.5-5.1); SODIUM LEVEL 139 MEQ/L (136-145)
[2021-05-18] MEDS ORDERED: AMOX875T2 PO (07:33)
[2021-05-18] MEDS: LACTOBACILLUS ACIDOPHILUS CAP (BACID) PO SCH (08:09)
[2021-05-18] MEDS: FOLIC ACID 1 MG TAB PO SCH (08:09)
[2021-05-18] MEDS: AUGMENTIN 875 MG TAB PO SCH (08:09)
[2021-05-18] MEDS: MULTIVITAMINS/MINERALS THERAP 1 TAB PO SCH (08:09)
[2021-05-18] MEDS: RIVAROXABAN 15 MG TAB (XARELTO) PO SCH (08:09)
[2021-05-18] MEDS: THIAMINE 100 MG TAB PO SCH (08:09)
--- NOTE | 2021-05-18 14:00 | DS.PDOC ---
Discharge Summary General Date of Admission May 13, 2021 at 00:39 Date of Discharge May 18, 2021 Discharge Summary PROCEDURES PERFORMED DURING STAY: None ADMITTING DIAGNOSES: 1. Left upper extremity cellulitis 2. Left upper extremity ulcer 3. 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 EtOH use DISCHARGE DIAGNOSES: 1. Left upper extremity cellulitis 2. Left upper extremity ulcer 3. 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 EtOH use COMPLICATIONS/CHIEF COMPLAINT: Cellulitis Of Left Upper Extremity. HISTORY OF PRESENT ILLNESS: Copied from admitting providers H&P " Nguyễn Long is a 66-year-old white male with significant history of PE, TIA, MEREDITH, EtOH use and chronic back pain who arrives with left upper extremity swelling. Patient reports 2 weeks ago he slipped and landed on his left elbow and noted some swelling around the elbow- denied bruising or discoloration. He reports that he did notice what he described as almost blistered-like area 2 inches above the elbow that he popped with a needle and then over the course of the past week he reports that his elbow has had some redness/ swelling spreading to LUE. Patient describes it as getting progressively worse over the past 3 days; described as discomfort with swelling. Associated symptoms of fever/chills. He reports yesterday he went to the [facility] and got a prescription for clindamycin which he picked up today. He has since taken 3 tablets today before his encouraged him to come to the ER. Pt denies mina, sinus congestion, sore throat, productive cough, sob, palpitations, n/v/d, abdominal pain, weakness, sensory changes or syncope. Patient notably swollen left arm with circular scabbed wound to left elbow and surrounding erythema of note, LUE US neg DVT. Patient will be admitted for further evaluation and management of presenting concerns " HOSPITAL COURSE: During hospitalization, patient denied any chest pain. Patient was initially on vancomycin, but cellulitis grew beyond the marked lines while on vancomycin. Zosyn was added on to broaden the coverage. CT of the left upper extremity was obtained due to concern for septic arthritis. Imaging was negative for fluid in the joint space. He did have 2 subcutaneous focal fluid collections. They were drained and cultured. Of note, patient was already on antibiotics at this time. Culture grew MSSA and anaerobic culture was negative. This was strange since the cellulitis did not initially respond to IV vancomycin or oral clindamycin outpatient. Vancomycin was discontinued. Afterwards patient did well. He had more range of motion in his arm and the cellulitis started to improve. Today, patient felt well and he felt ready for home. Patient was discharged home with Augmentin as he had similar coverage to Zosyn and will cover for organisms that vancomycin would not cover. DISCHARGE MEDICATIONS: Please see below. ALLERGIES: Please see below. PHYSICAL EXAMINATION ON DISCHARGE: VITAL SIGNS: Please see below. GENERAL: Comfortable, in no apparent distress. HEENT: Sclera clear. NECK: Supple. RESPIRATORY: Lungs clear to auscultation bilaterally, no rales, wheeze or rhonchi. CARDIOVASCULAR: Regular rate and rhythm. ABDOMEN: Soft, nontender, no guarding or rebound tenderness. Normal bowel sounds. MUSCLE SKELETAL: Muscle strength 5/5 in all extremities. NEUROLOGICAL: CN 3-12 grossly intact, no focal deficits noted. PSYCHOLOGICAL: Normal mood and affect LABORATORY DATA: Please see below. IMAGING: Radiologist interpretation Vascular ultrasound of left arm Negative left upper extremity venous duplex exam without evidence of deep venous thrombosis. CT left elbow without contrast There are 2 subcutaneous focal fluid collections with slightly echogenic fluid, 1 posterior to the olecranon in the olecranon bursa and the other in the antecubital fossa, compatible with either abscesses or hematomas. There is circumferential subcutaneous soft tissue edema and slight skin thickening in the distal upper arm and in the forearm compatible with cellulitis. No fracture or dislocation. No lytic, blastic or destructive skeletal changes. Chest x-ray No active process. PROGNOSIS: Good ACTIVITY: As tolerated. DIET: As tolerated DISCHARGE PLAN: Home DISPOSITION: 01 Home, Self-Care. DISCHARGE INSTRUCTIONS: 1. Follow-up with PCP in 1 week 2. Please request advanced wound care referral for left elbow wound. 3. Clean wound with vashe. On wound, place Hydrofera Blue and cover with foam. Change wound daily and as needed. ITEMS TO FOLLOWUP ON ON OUTPATIENT: 1. Monitor improvement in left arm cellulitis and left elbow ulcer DISCHARGE CONDITION: Stable Total time spent on discharge planning, discharge summary, medication reconciliation: 45 minutes Vital Signs/I&Os Vital Signs Date Time Temp Pulse Resp B/P (MAP) Pulse Ox O2 Delivery O2 Flow Rate FiO2 05/18/21 06:00 98.7 60 20 164/84 (110) 100 Room Air I&O- Last 24 Hours up to 6 AM 05/18/21 05:59 Intake Total 1300 ml Balance 1300 ml Laboratory Data Labs 24H Laboratory Tests 2 05/18/21 05:49: Immature Granulocyte % (Auto) 0.2, Neutrophils (%) (Auto) 57.1, Lymphocytes (%) (Auto) 25.8, Monocytes (%) (Auto) 10.1H, Eosinophils (%) (Auto) 5.2H, Basophils (%) (Auto) 1.6H, Neutrophils # (Auto) 2.4, Lymphocytes # (Auto) 1.1L, Monocytes # (Auto) 0.4, Eosinophils # (Auto) 0.2, Basophils # (Auto) 0.1, Nucleated Red Blood Cells % (auto) 0.0, Anion Gap 4L, Glomerular Filtration Rate > 60.0, Calcium Level 9.1 CBC/BMP Laboratory Tests 05/18/21 05:49 Microbiology Microbiology 05/13/21 Anaerobic Culture - Final, Complete 05/13/21 Gram Stain - Final, Complete 05/13/21 Abscess Culture - Final, Complete Staphylococcus Aureus 05/12/21 Blood Culture - Final, Complete NO GROWTH AFTER 5 DAYS 05/12/21 Blood Culture - Final, Complete NO GROWTH AFTER 5 DAYS Discharge Medications Scheduled Amoxicillin/Potassium Clav (Amox-Clav 875-125 mg Tablet) 1 Each Tablet, 875 MG P O BID L.acidoph/L.bulg/B.bif/S.therm (Bacid Caplet) 1 Each Tablet, 1 TAB PO DAILY, (Reported) Multivitamins (Thera M Plus Tablet) 1 Each Tablet, 1 TAB PO DAILY, (Reported) Rivaroxaban (Xarelto) 15 Mg Tablet, 15 MG PO DAILY, (Reported) Allergies Coded Allergies: No Known Allergies (Unverified , 06/22/13) BRADY MONTENEGRO DO May 18, 2021 14:00
== END 2021-05-18 12:57 | disposition home or self-care (01) | DRG 603 ==
LOC: M ED 16:02 → M ED INP 05-13 00:39 → ENRESERV 05-13 00:53 → M MSPAV 05-13 02:38
PROVIDERS: ADMIT Internal Medicine; ATTEND Internal Medicine
PROC: 0X9 Anatomical Regions, Upper Extremities, Drainage (ICD-10-PCS; principal; 2021-05-13 15:00)
DX: L03.114 Cellulitis of left upper limb (principal); L98.499 Non-pressure chronic ulcer of skin of other sites with unspecified severity; F10.10 Alcohol abuse, uncomplicated; Z79.01 Long term (current) use of anticoagulants; Z86.73 Personal history of transient ischemic attack (TIA), and cerebral infarction without residual deficits; G47.33 Obstructive sleep apnea (adult) (pediatric); Z86.711 Personal history of pulmonary embolism

== ENCOUNTER → 2021-07-08 | Outpatient (CLI) | payer MEDICARE, OTHER ==
[~2021-07-08] MED LIST changes: +AMOX875T2 PO; +BACITAB PO; +CLEO300C2 PO; +VITMTA PO
[2021-07-08 16:14] LABS: BASO % 1.1 % (0.0-1.0); EOS # 0.1 10^3/uL (0.0-0.5); EOS % 5.1 % (0.0-3.0); HEMATOCRIT 42.2 % (42.0-52.0); HEMOGLOBIN 14.4 g/dl (13.5-17.5); LYMPH # 0.8 10^3/uL (1.5-5.0); LYMPH % 30.2 % (24.0-44.0); MEAN CORPUSCULAR HEMOGLOBIN 31.6 pg (27.0-33.0); MEAN CORPUSCULAR HGB CONC 34.1 g/dl (32.0-36.5); MEAN CORPUSCULAR VOLUME 92.5 fl (80.0-96.0); MONO # 0.3 10^3/uL (0.0-0.8); MONO % 11.6 % (2.0-8.0); NEUTROPHILS # 1.4 10^3/uL (1.5-8.5); NEUTROPHILS % 51.6 % (36.0-66.0); PLATELET COUNT, AUTOMATED 183 10^3/uL (150-450); RED BLOOD COUNT 4.56 10^6/uL (4.30-6.10); WHITE BLOOD COUNT 2.8 10^3/uL (4.0-10.0)
[2021-07-08 16:15] LABS: APPEARANCE, URINE CLEAR (CLEAR); BACTERIA, URINE AUTO NEGATIVE (NEGATIVE); BILIRUBIN, URINE AUTO NEGATIVE (NEGATIVE); BLOOD, URINE BLOOD NEGATIVE (NEGATIVE); COLOR, URINE STRAW (YELLOW); GLUCOSE, URINE (UA) AUTO NEGATIVE (NEGATIVE); KETONE, URINE AUTO NEGATIVE (NEGATIVE); LEUKOCYTE ESTERASE, URINE AUTO NEGATIVE (NEGATIVE); NITRITE, URINE AUTO NEGATIVE (NEGATIVE); PROTEIN, URINE AUTO NEGATIVE (NEGATIVE); RBC, URINE AUTO 0 /HPF (0-3); SPECIFIC GRAVITY URINE AUTO 1.006 (1.002-1.035); SQUAMOUS EPITHELIAL CELL UR AU 0 /HPF (0-6); UROBILINOGEN, URINE AUTO 0.2 mg/dL (0.0-2.0); WBC, URINE AUTO 0 /HPF (0-3)
[2021-07-08 16:38] LABS: BLOOD UREA NITROGEN 19 MG/DL (7-18); CARBON DIOXIDE LEVEL 31 MEQ/L (21-32); CHLORIDE LEVEL 107 MEQ/L (98-107); CREATININE FOR GFR 1.15 MG/DL (0.70-1.30); GLOMERULAR FILTRATION RATE > 60.0 (>49); GLUCOSE, FASTING 86 MG/DL (70-100); POTASSIUM SERUM 4.6 MEQ/L (3.5-5.1); SODIUM LEVEL 139 MEQ/L (136-145)
[2021-07-08 17:33] LABS: CREATININE, URINE 46.7 MG/DL; CREATININE,RANDOM URINE 46.7 MG/DL; MALB URINE SIEMENS < 5.0 MG/L; MAU/CREAT RATIO 10.7 MCG/MG (0.0-30.0); TOTAL PROTEIN,RANDOM URINE 7.5 MG/DL (0.0-12.0)
[2021-07-08 18:45] LABS: HEMOGLOBIN A1c 5.7 %
== END ==
LOC: M LAB 14:47
PROVIDERS: ATTEND Internal Medicine Nephrology
DX: Z00.5 Encounter for examination of potential donor of organ and tissue (principal); Z79.899 Other long term (current) drug therapy

== ENCOUNTER → 2021-07-26 | Outpatient (REF) | payer MEDICARE, OTHER ==
[2021-07-28 17:08] LABS: CREATININE, URINE 60.3 MG/DL; URINE TOTAL PROTEIN < 5.0 MG/DL (0-12)
[2021-07-28 20:11] LABS: CREATININE 24 HOUR, URINE 1658.2 MG/24HR (950-2500); TOTAL VOLUME, URINE 2750 ML
== END ==
LOC: M LAB REF 15:38
PROVIDERS: ATTEND Internal Medicine Nephrology
DX: Z00.5 Encounter for examination of potential donor of organ and tissue (principal)

== ENCOUNTER → 2021-08-11 | Outpatient (CLI) | payer MEDICARE, OTHER ==
[2021-08-11 16:59] LABS: CREATININE FOR GFR 1.06 MG/DL (0.70-1.30); GLOMERULAR FILTRATION RATE > 60.0 (>49)
[2021-08-11 17:29] LABS: CREATININE, URINE 20.9 MG/DL; MALB URINE SIEMENS < 5.0 MG/L; MAU/CREAT RATIO 23.9 MCG/MG (0.0-30.0)
[2021-08-11 18:15] LABS: APPEARANCE, URINE CLEAR (CLEAR); BACTERIA, URINE AUTO NEGATIVE (NEGATIVE); BILIRUBIN, URINE AUTO NEGATIVE (NEGATIVE); BLOOD, URINE BLOOD NEGATIVE (NEGATIVE); COLOR, URINE STRAW (YELLOW); GLUCOSE, URINE (UA) AUTO NEGATIVE (NEGATIVE); KETONE, URINE AUTO NEGATIVE (NEGATIVE); LEUKOCYTE ESTERASE, URINE AUTO NEGATIVE (NEGATIVE); NITRITE, URINE AUTO NEGATIVE (NEGATIVE); PROTEIN, URINE AUTO NEGATIVE (NEGATIVE); RBC, URINE AUTO 0 /HPF (0-3); SPECIFIC GRAVITY URINE AUTO 1.004 (1.002-1.035); SQUAMOUS EPITHELIAL CELL UR AU 0 /HPF (0-6); UROBILINOGEN, URINE AUTO 0.2 mg/dL (0.0-2.0); WBC, URINE AUTO 0 /HPF (0-3)
== END ==
LOC: M LAB 15:28
PROVIDERS: ATTEND Internal Medicine Nephrology
DX: Z00.5 Encounter for examination of potential donor of organ and tissue (principal)

== ENCOUNTER → 2021-10-28 | Outpatient (REF) | payer MEDICARE, OTHER | LOC: M LAB REF 17:23 | PROVIDERS: ATTEND Physician Assistant | DX: L82.1 Other seborrheic keratosis (principal) ==

== ENCOUNTER 2021-11-29 15:37 | Emergency (ER) | payer MEDICARE, OTHER ==
[~2021-11-29] VITALS: Ht 180.3 cm; Wt 94.1 kg
[2021-11-29 17:50] VITALS: BP 124/79
== END 2021-11-29 17:52 | disposition home or self-care (01) ==
LOC: M ED 15:37
DX: S92.312A Displaced fracture of first metatarsal bone, left foot, initial encounter for closed fracture (principal); M77.32 Calcaneal spur, left foot; W19.XXXA Unspecified fall, initial encounter; Y92.89 Other specified places as the place of occurrence of the external cause; Y93.9 Activity, unspecified; Y99.9 Unspecified external cause status; G47.33 Obstructive sleep apnea (adult) (pediatric); E03.9 Hypothyroidism, unspecified

== ENCOUNTER → 2021-12-08 | Outpatient (CLI) | payer MEDICARE, OTHER | LOC: M RAD 09:56 | PROVIDERS: ATTEND Physician Assistant Surgical | DX: M79.672 Pain in left foot (principal); M19.072 Primary osteoarthritis, left ankle and foot ==

== ENCOUNTER 2022-01-22 17:48 | Emergency (ER) | payer MEDICARE, OTHER ==
[~2022-01-22] VITALS: Ht 180.3 cm; Wt 95.5 kg
[2022-01-22 17:48] VITALS: BP 136/94
== END 2022-01-22 20:47 | disposition home or self-care (01) ==
LOC: M ED 17:48
DX: S63.601A Unspecified sprain of right thumb, initial encounter (principal); X50.1XXA Overexertion from prolonged static or awkward postures, initial encounter; Y92.099 Unspecified place in other non-institutional residence as the place of occurrence of the external cause; Y93.89 Activity, other specified; Y99.9 Unspecified external cause status; S60.351D Superficial foreign body of right thumb, subsequent encounter; X58.XXXD Exposure to other specified factors, subsequent encounter; E03.9 Hypothyroidism, unspecified; F41.9 Anxiety disorder, unspecified; G47.30 Sleep apnea, unspecified; Z87.820 Personal history of traumatic brain injury

== ENCOUNTER 2022-02-10 13:39 | Emergency (ER) | payer MEDICARE, OTHER ==
[~2022-02-10] VITALS: Ht 180.3 cm; Wt 90.9 kg
[2022-02-10 13:40] VITALS: BP 134/92
[2022-02-10 15:12] LABS: BASO # 0.1 10^3/uL (0.0-0.2); BASO % 1.6 % (0.0-1.0); EOS # 0.2 10^3/uL (0.0-0.5); EOS % 5.3 % (0.0-3.0); HEMATOCRIT 42.5 % (42.0-52.0); HEMOGLOBIN 14.8 g/dl (13.5-17.5); LYMPH # 1.1 10^3/uL (1.5-5.0); LYMPH % 32.7 % (24.0-44.0); MEAN CORPUSCULAR HEMOGLOBIN 31.6 pg (27.0-33.0); MEAN CORPUSCULAR HGB CONC 34.8 g/dl (32.0-36.5); MEAN CORPUSCULAR VOLUME 90.8 fl (80.0-96.0); MONO # 0.4 10^3/uL (0.0-0.8); MONO % 12.1 % (2.0-8.0); NEUTROPHILS # 1.5 10^3/uL (1.5-8.5); PLATELET COUNT, AUTOMATED 163 10^3/uL (150-450); RED BLOOD COUNT 4.68 10^6/uL (4.30-6.10); WHITE BLOOD COUNT 3.2 10^3/uL (4.0-10.0)
[2022-02-10 15:23] LABS: INR 0.89; PROTHROMBIN TIME 12.4 SECONDS (12.7-14.5)
[2022-02-10 15:24] LABS: PARTIAL THROMBOPLASTIN TIME 35.3 SECONDS (25.9-37.0)
[2022-02-10 15:26] LABS: D-DIMER QUANT 460.42 ng/ml (<500)
[2022-02-10 15:35] LABS: BLOOD UREA NITROGEN 15 MG/DL (7-18); CALCIUM LEVEL 9.9 MG/DL (8.8-10.2); CARBON DIOXIDE LEVEL 28 MEQ/L (21-32); CHLORIDE LEVEL 110 MEQ/L (98-107); CREATININE FOR GFR 1.12 MG/DL (0.70-1.30); GLOMERULAR FILTRATION RATE > 60.0 (>49); GLUCOSE, FASTING 106 MG/DL (70-100); NT-PRO BNP 71 PG/ML (<125); POTASSIUM SERUM 4.3 MEQ/L (3.5-5.1); SODIUM LEVEL 141 MEQ/L (136-145)
[2022-02-10] MEDS ORDERED: ISOVUE-370 76% 100ML VIAL As Ordered ONE (15:47)
[2022-02-10 15:50] LABS: MB/CK RELATIVE INDEX 1.23 (< OR =4)
[2022-02-10 16:35] LABS: RSV AMPLIFICATION NEGATIVE (NEGATIVE)
[2022-02-10] MEDS ORDERED: ASPIRIN 81 MG CHEW TABLET PO ONE (17:10)
[2022-02-10 17:54] LABS: CK-MB VALUE MASS 2.3 NG/ML (<3.6); MB/CK RELATIVE INDEX 2.19 (< OR =4)
[2022-02-10] MEDS ORDERED: ECOT81TA5 PO (18:03)
== END 2022-02-10 18:23 | disposition home or self-care (01) ==
LOC: M ED 13:39
DX: R06.00 Dyspnea, unspecified (principal); R00.2 Palpitations; I45.89 Other specified conduction disorders; R00.1 Bradycardia, unspecified; F41.9 Anxiety disorder, unspecified; Z87.820 Personal history of traumatic brain injury; Z86.711 Personal history of pulmonary embolism
CPT/HCPCS: 71046; 71275; 80048; 82550; 82553; 83880; 84484; 85025; 85379; 85610; 85730; 87631; 93005; 99285; Q9967

== ENCOUNTER → 2022-05-13 | Outpatient (CLI) | payer MEDICARE, OTHER ==
[~2022-05-13] MED LIST changes: +ECOT81TA5 PO; +IBUP200C28 PO; +MELA3TAB30 PO; +RA P1CAP3 PO; +ZINC50TA17 PO; +[UNRECOGNIZED DRUG - CODE] PO
== END ==
LOC: M LABSMTC 09:47
PROVIDERS: ATTEND Anesthesiology
DX: Z01.812 Encounter for preprocedural laboratory examination (principal); Z20.822 Contact with and (suspected) exposure to COVID-19

== ENCOUNTER 2022-05-18 11:41 | Day surgery (SDC) | payer MEDICARE, OTHER ==
[~2022-05-18] VITALS: Ht 180.3 cm; Wt 90.6 kg
[~2022-05-18 11:41] MED LIST changes: +NS 1,000 ML IV ONE
[2022-05-18] MEDS ORDERED: fentaNYL 100 MCG/2 ML INJECTION As Ordered ONE (13:49)
[2022-05-18] MEDS ORDERED: LIDOCAINE 2% 100MG/5ML SDV (FOR ANES.) As Ordered ONE (13:49)
[2022-05-18] MEDS ORDERED: propofoL 200 MG/20 ML VIAL As Ordered ONE (13:49)
[2022-05-18 14:05] VITALS: BP 122/70
== END 2022-05-18 14:24 | disposition home or self-care (01) ==
LOC: M OPP 11:41
PROVIDERS: ATTEND Internal Medicine Gastroenterology
DX: K57.30 Diverticulosis of large intestine without perforation or abscess without bleeding (principal); K64.8 Other hemorrhoids; K21.00 Gastro-esophageal reflux disease with esophagitis, without bleeding; G47.33 Obstructive sleep apnea (adult) (pediatric); Z99.89 Dependence on other enabling machines and devices; Z86.711 Personal history of pulmonary embolism; Z87.891 Personal history of nicotine dependence
CPT/HCPCS: 43235; 45378; J3010

== ENCOUNTER 2022-08-13 19:05 | Emergency (ER) | payer MEDICARE, OTHER ==
[~2022-08-13] VITALS: Ht 180.3 cm; Wt 91.9 kg
[~2022-08-13 19:05] MED LIST changes: -NS 1,000 ML IV ONE
[2022-08-14 01:19] VITALS: BP 127/74
== END 2022-08-14 03:52 | disposition left against medical advice (07) ==
LOC: M ED 19:05
DX: Z53.21 Procedure and treatment not carried out due to patient leaving prior to being seen by health care provider (principal)

== ENCOUNTER 2023-02-08 13:55 | Emergency (ER) | payer MEDICARE, OTHER ==
[~2023-02-08] VITALS: Ht 180.3 cm; Wt 93.1 kg
[2023-02-08] MEDS ORDERED: OFLO5DRO (14:06)
[2023-02-08] MEDS ORDERED: BENZ200C70 PO (19:05)
[2023-02-08] MEDS ORDERED: AMOX875T2 PO (19:05)
[2023-02-08 19:20] VITALS: BP 143/82
== END 2023-02-08 19:32 | disposition home or self-care (01) ==
LOC: M ED 13:55
DX: J01.90 Acute sinusitis, unspecified (principal); R05.9 Cough, unspecified; E03.9 Hypothyroidism, unspecified; G47.30 Sleep apnea, unspecified; Z86.711 Personal history of pulmonary embolism; Z87.820 Personal history of traumatic brain injury; Z79.899 Other long term (current) drug therapy

== ENCOUNTER → 2024-01-30 | Outpatient (CLI) | payer OTHER, MEDICARE ==
[~2024-01-30] MED LIST changes: +BENZ200C70 PO; +OFLO5DRO
== END ==
LOC: M EKG 10:54
PROVIDERS: ATTEND Orthopaedic Surgery
DX: Z01.818 Encounter for other preprocedural examination (principal); R00.1 Bradycardia, unspecified; I45.19 Other right bundle-branch block; R94.31 Abnormal electrocardiogram [ECG] [EKG]

== ENCOUNTER → 2024-09-07 | Outpatient (CLI) | payer MEDICARE, OTHER | LOC: M PLALAB 15:22 | PROVIDERS: ATTEND Physician Assistant | DX: R97.20 Elevated prostate specific antigen [PSA] (principal) ==

== ENCOUNTER → 2025-04-04 | Outpatient (CLI) | payer MEDICARE, OTHER ==
[~2025-04-04] MED LIST changes: +LIDO1ADH93; +LIDO1ADH93 TD; -LIDO5DIS41; -LIDO5DIS41 TD
== END ==
LOC: M PLALAB 13:44
PROVIDERS: ATTEND Physician Assistant
DX: R97.20 Elevated prostate specific antigen [PSA] (principal)